=== PATIENT | female | born 1980 | race Caucasian/White ===

== ENCOUNTER 2025-07-08 05:04 | Day surgery (SDC) | payer MEDICAID, SELFPAY ==
[2025-07-08] VITALS (23 sets, daily range): BP systolic 89–124; BP diastolic 50–94; PULSE 77–117; RESP 13–20; TEMP 36.2–37.9; O2SAT 91–100; BMI 33.9
--- OUTSIDE RECORDS SUMMARY | 2025-07-08 05:07 | XMS_ITS | Data Portability ---
Author Organization [facility], [facility] Address [address] [place] [address] Care Team Providers Care Equity Director Name Role Phone [facility] Primary Care Provider Assessment No assessment recorded. Plan of Treatment Reminders Order Date Submit Date Provider Last Modified By Organization Details Last Modified Time Details Appointments None recorded. Lab PTH (parathyr oid hormone), intact + calcium, serum or plasma [email or web address] 30 [facility], [address] [facility], [place], [address], 09:48:46 kidney stone, 24-hour urine panel 021 [email or web address] [employer], [address], [place], [address], 16:17:18 Referral None recorded. Procedures None recorded. Surgeries None recorded. Imaging XR, kidney + ureter + bladder 022 [email or web address] Not available 2 15:10:01 Medication Orders None recorded. Patient TargetsNo targets recorded. Patient InstructionsNo instructions recorded. Reason for Referral None Reported. Results Created Date Observation Date Name Description Value Unit Range Abnormal Flag Note LastModifiedBy Organization Detail LastModifiedTime 12/11/19 21 12/03/2020 imagi ng/di agnos tic resul t No observ ation record ed. [email or web address] Not Available 10/2020 09:48:57 Result Notes None recorded. Procedures Surgical History Date Name Laterality Status Provider Name and Address Organization Details Recorded Time 1 Cystoscopy with foreign body/stent removal completed Des Ye MD [address] [place] [address],[address], [place], [address], [facility] 06/15/2021 14:00:34 Cystoscopy with foreign body/stent removal completed Des Ye MD [address] [place] [address],[address], [place], [address], [facility] 12/30/2020 22:58:34 Breast reduction completed Des Ye MD [address] [place] [address],[address], [place], [address], [facility] 12/29/2020 15:27:08 Carpal tunnel surgery completed Des Ye MD [address] [place] [address],[address], [place], [address], [facility] 12/29/2020 15:27:14 delivery completed Des Ye MD [address] [place] [address],[address] [place] [address], [phone], [facility] 12/29/2020 15:27:22 Imaging Results None recorded. Procedure Notes None recorded. Medical Equipment None Reported. Allergies Allergen ID Allergen Name Allergen Category Reaction Reaction Severity Criticality Documentation Date Start Date Code Code System Note Provider Name and Address Organization Details Recorded Time 234448 quetiapin e medicatio n other Not available Not available 12/29/20202015 00011 RxNorm Des Ye MD [address] [place] [address],[address] [place] [address], [phone], [facility] 1 15:24:50 534136 hydroxyzi ne Not available Not available Not available Not available 12/29/20202015 5553 RxNorm Other react ions and sever ities : 'Thro at Swell ing/C ginain g - Sever e'. Des Ye MD [address] [place] [address],[address] [place] [address], [phone], [facility] 1 15:24:50 155640 lamotrigi ne medicatio n sultana-j ohnson syndrome severe Not available 12/29/20202017 69411 RxNorm Des Ye MD [address] [place] [address], [phone], [facility] 1 15:24:50 045038 loratadin e medicatio n edema severe Not available 12/29/20202011 70918 RxNorm Other react ions and sever ities : 'Thro at Swell ing/C losin g - Sever e'. Des Ye MD [address] [place] [address],[address], [phone], [facility] 1 15:24:50 815303 topiramat e medicatio n other Not available Not available 12/29/20202017 44811 RxNorm Des Ye MD [address] [place] [address], [facility] 1 15:24:50 [id number] quetiapin e fumarate medicatio n edema hives severe severe Not available 12/29/20202011 25219 3 RxNorm Des Ye MD [address] [place], [place] [phone], [facility] 1 15:24:50 Medications Name Sig Start Date Stop Date Status Note LastModified by Organization Details LastModified Time cyclobenzap rine 10 mg tablet TAKE ONE TABLET BY MOUTH THREE TIMES DAILY active Not Available Not Available No t Available phenazopyri dine 200 mg tablet 06/15 completed Not Available Not Available Not Available ondansetron HCl 4 mg tablet TAKE ONE TABLET BY MOUTH EVERY SIX HOURS NEEDED active Not Available Not Available No t Available venlafaxine ER 150 mg capsule,ext ended release 24 hr TAKE TWO CAPSULE BY MOUTH DAILY WITH a MEAL active Not Available Not Available No t Available phentermine 37.5 mg tablet Take 1 tablet by mouth once daily before a meal. active Not Available Not Available No t Available sulfamethox azole 800 mg-trimetho prim 160 mg tablet TAKE ONE TABLET BY MOUTH TWICE DAILY FOR 7 DAYS 06/15 completed Not Available Not Available Not Available acetaminoph en 500 mg tablet TAKE 2 TABLETS BY MOUTH EVERY 6 HOURS. TAKE NO MORE THAN 4000MG (8 TABLETS) PER DAY active Not Available Not Available No t Available ketorolac 10 mg tablet active Not Available Not Available Not Available oxycodone-a cetaminophe n 5 mg-325 mg tablet TAKE ONE OR TWO TABLETS BY MOUTH EVERY FOUR HOURS NEEDED 06/15 completed Not Available Not Available Not Available tamsulosin 0.4 mg capsule TAKE ONE CAPSULE BY MOUTH ONE TIME DAILY active Not Available Not Available No t Available cephalexin 500 mg capsule TAKE ONE CAPSULE BY MOUTH THREE TIMES DAILY 06/15 completed Not Available Not Available Not Available diphenhydra mine 25 mg capsule 06/15 completed Not Available Not Available Not Available buspirone 30 mg tablet TAKE ONE TABLET BY MOUTH TWICE DAILY active Not Available Not Available No t Available gabapentin 300 mg capsule take 1-2 capsules by mouth during the day as needed for anxiety and take 2 capsules by mouth at bedtime. active Not Available Not Available No t Available omeprazole 20 mg capsule,del ayed release Take 1 capsule by mouth once daily 30 minutes before breakfast active Not Available Not Available No t Available ibuprofen 600 mg tablet TAKE ONE TABLET BY MOUTH EVERY SIX HOURS active Not Available Not Available No t Available ondansetron 4 mg disintegrat ing tablet 06/15 completed Not Available Not Available Not Available prazosin 2 mg capsule TAKE THREE CAPSULES BY MOUTH DAILY AT BEDTIME active Not Available Not Available No t Available oxycodone 5 mg tablet TAKE ONE TABLET BY MOUTH EVERY FOUR HOURS NEEDED 06/15 completed Not Available Not Available Not Available bupropion HCl XL 150 mg 24 hr tablet, extended release TAKE ONE TABLET BY MOUTH ONE TIME DAILY active Not Available Not Available No t Available pregabalin 75 mg capsule TAKE ONE CAPSULE BY MOUTH TWICE DAILY 12/29 completed Not Available Not Available Not Available pregabalin 150 mg capsule TAKE ONE CAPSULE BY MOUTH TWICE DAILY active Not Available Not Available No t Available magnesium 400 mg (as magnesium oxide) capsule 2019 active Not Available Not Available [facility] Vitals Date Recorded Body height Body mass index (BMI) Body weight Provider Name and Address Organization Details Last Updated DateTime 12/29/2020 149.86 cm 46.5 kg/m2 753486.25 g Des Ye MD [address] [facility],[address], [address] [place] [address] Urology 12/29/2020 15:24:33 Date Recorded Body height Body mass index (BMI) Body weight Provider Name and Address Organization Details Last Updated DateTime 06/15/2021 149.86 cm 44.4 kg/m2 18579.32 g Des Ye MD [address] [facility],[address], [place], [address] 06/15/2021 11:27:44 Social History Question Answer Notes LastModified by [employer] Details LastModified Time Tobacco Smoking Status Former Smoker Des Ye MD [address] [facility],[address], [place], [address] 12/29/2020 15:26:47 When Did You Quit Smoking? 17+yearssinc elastcigaret te Information not available 12/29/2020 What Was The Date Of Your Most Recent Tobacco Screening? 06/15/2021 Information not available 06/15/2021 Sex: Unknown Functional Status Question Answer Note LastModified by [employer] Details LastModified Time Do you or have you ever used any other forms of tobacco or nicotine? No Information not available 06/15/2021 Do you or have you ever used smokeless tobacco? Never used smokeless tobacco Information not available 12/29/2020 Do you or have you ever used e-cigarettes or vape? Never used electronic cigarettes Information not available 12/29/2020 Mental Status None recorded. Family History Relationship Description Onset Age of this Age Resolved Age Notes LastModified by Organization Details LastModified Time Mother Family history of diabetes mellitus Not available 2020 15:26:30 Mother Heart disease Not available 2020 15:26:38 Father Family history of malignant neoplasm Not available 2020 15:26:42 Medical History Condition Response Kidney Stones Y Depression Y Gynecological HistoryNo gynecological history recorded. Obstetrics History GPAL:G 0 P 0 0 0 0 Past Encounters Encounter ID Performer Location Encounter Start Date Encounter Closed Date Diagnosis/Indication Diagnosis SNOMED-CT Code Diagnosis ICD10 Code Diagnosis IMO Codes Diagnosis Note [id number] Des Ye MD [facility] [address] [place] [id number] 12/29/2020 14:51:10 12/31/2020 09:43:44 Kidney stone 60886073 N20.0 1. Kidney stones - s/p Left ureterosco py with laser lithotrips y (12/16/20) - encourage fluid intake (2.5 L per day) and Citrate intake - recheck 24 Hr urine study - Follow-up in 4-6 weeks to discuss the results [id number] MD [facility] [address] [place] [id number] 06/15/2021 11:10:48 06/17/2021 10:19:43 Kidney stone 05091383 N20.0 1. Kidney stones - s/p Left ureterosco py with laser lithotrips y (06/08/21) - reviewed 24 Hr urine study (01/17/21) - low urine output (1.69 L) - recommend drinking at least 2.5 L per day - high Calcium (229 mg) - check PTH and serum- high Sodium (262 mg) - recommend low Sodium diet (1658-6971 mg per day)- high Uric acid - limit protein intake to 8 ounce per day- Follow-up in- Follow-up in 6 months with [facility]- (repeat CT scan (stone tech) in June 2022 Health Concerns Section Related Observation LastModified by Organization Detai ls LastModified Time None Recorded Concern Status LastModified by Organization Details LastModified Time None Recorded Advance Directives Directive None Recorded Payers Insurance Date Sequence Insurance Name Policy Number Policy Rubio Covered Member ID Rubio Member ID Guarantor Name 06/15/2021 1 [id number] Amarilys Molina [id number] Amarilys Molina Notes Date Note Type Note Provider Name and Address Organization Details Recorded Time 12/29/2020 text/html 40 yo female with H/O fibromyalgia and kidney stones (100% Calcium oxalate monohydrate - saw Dr. Yang in 2010) - reports gross hematuria in OctNovember 2016. She underwent Left ureteroscopy with laser lithotripsy on 09/13/17 - stone (60% Calcium phosphate, 20% Calcium oxalate monohydrate, and 20% Calcium oxalate dihydrate). She underwent Right ureteroscopy with laser lithotripsy on 11/29/17. She underwent Left ureteroscopy with laser lithotripsy (12/16/20) with Dr. Henry. Stone - 80% Calcium phosphate and 20% Calcium oxalate monohydrate. 12/29/20 - She presents for stent removal today. She reports moderate bladder and left kidney irritation from stent. Her hematuria has resolved. ____ CT (11/06/16) - Right - 6 mm stone (upper pole) - 5 mm stone (lower pole) - Left - 4 mm stone (mid-kidney) - 2 (5 mm) stones in proximal ureter CT (08/08/2017) - Right - 1 cm stone (lower pole) - 1.2 cm (renal pelvis) - Left - 5 mm & 6 mm stone (mid-ureter) - no stones in kidney CT scan (12/03/20) - Left - 6 mm, 3 mm, 3 mm stones (mid-ureter) - 4 mm stone (kidney) - Right - punctate stones 24 Hr urine (12/18/17) - low UO (0.92 L) - high Oxalate (55 mg) - low Citrate (385 mg) - low MG (20 mg) - normal - Calcium (30 mg) - Phos (0.698) - Uric acid (0.613) Des Ye MD [address] [place] [address],[address], [place], [address] [place] [facility] 12/30/2020 23:00:44 06/15/2021 text/html 41 yo female with H/O fibromyalgia and kidney stones (100% Calcium oxalate monohydrate - saw Dr. Yang in 2010) - reports gross hematuria in OctNovember 2016. She underwent Left ureteroscopy with laser lithotripsy on 09/13/17 - stone (60% Calcium phosphate, 20% Calcium oxalate monohydrate, and 20% Calcium oxalate dihydrate). - s/p Right ureteroscopy with laser lithotripsy - (11/29/17) - s/p Left ureteroscopy with laser lithotripsy - (12/16/20) with Dr. Henry - Stone - 80% Calcium phosphate and 20% Calcium oxalate monohydrate- s/p Left ureteroscopy with laser lithotripsy - (12/16/20) with Dr. Henry- s/p Left ureteroscopy with laser lithotripsy - (06/08/21) - 50% CaOX monohydrate, 30% CaOX dihydrate, and 10% Calcium phosphate 06/15/21 - She presents for stent removal today. She reports moderate bladder irritation from stent. Her hematuria has resolved. ____ CT (11/06/16) - Right - 6 mm stone (upper pole) - 5 mm stone (lower pole) - Left - 4 mm stone (mid-kidney) - 2 (5 mm) stones in proximal ureter CT (08/08/2017) - Right - 1 cm stone (lower pole) - 1.2 cm (renal pelvis) - Left - 5 mm & 6 mm stone (mid-ureter) - no stones in kidney CT scan (12/03/20) - Left - 6 mm, 3 mm, 3 mm stones (mid-ureter) - 4 mm stone (kidney) - Right - punctate stonesCT scan (05/06/21) - Left - 5 mm stone (distal ureter) - no stones in kidney- Right - 2 mm stone (upper pole) 24 Hr urine (12/18/17) - low UO (0.92 L) - high Oxalate (55 mg) - low Citrate (385 mg) - low MG (20 mg) - normal - Calcium (30 mg) - Phos (0.698) - Uric acid (0.613) 24 Hr urine (01/17/21) - low UO (1.69 L) - high Calcium (229 mg) - high Sodium (262 mg) - high Uric acid (1.109)- normal - Oxalate (35 mg ) - Citrate (486 mg) - Mg (101 mg) - Phos (1.1230) Des Ye MD [address] [facility],[address], [place], [address], [facility] [place] [facility] 06/15/2021 14:02:11 OBGyn Episode No OBEpisode recorded.
[2025-07-08 05:23] LABS: Appearance Urine Clear (Clear)
[2025-07-08 05:33] LABS: Ur HCG Qualitative* Negative (Negative)
--- NOTE | 2025-07-08 05:34 | CRLHL7_ITS ---
For Patients: As a result of the Century Cures Act, medical imaging exams and procedure reports are released immediately into your electronic medical record. You may view this report before your referring provider. If you have questions, please contact your health care provider. INDICATION: Severe epigastric pain, history of GERD. COMPARISON: 05/06/2021 TECHNIQUE: CT of the abdomen and pelvis with intravenous contrast. Multiplanar axial, coronal, and sagittal reformats were reconstructed. Contrast: 82 mL Isovue 370. FINDINGS: Lung bases: Normal. Liver: Normal. No mass. Gallbladder and bile ducts: The gallbladder is distended but there is not any pericholecystic edema or obvious gallbladder wall thickening. No bile duct dilation. Pancreas: Normal. Spleen: Normal. Adrenal glands: Normal. Kidneys: Normal overall renal size and position. There is a 1.2 centimeter right renal cyst. No calculi. Mildly patulous upper collecting systems. The degree of dilatation is better than before. The ureters are not dilated. Urinary bladder: Normal. Pelvis: There is a right ovarian or paraovarian cyst that measures 1.8 centimeters. Vessels: Normal. Bowel: No dilated or inflamed bowel. appendix. Mild stool burden. Lymph nodes: No adenopathy. Peritoneum: No ascites. Abdominal wall: No hernia. Bones: No fractures. No focal worrisome bone lesions. IMPRESSION: 1. Distended gallbladder without CT findings of acute cholecystitis. 2. There is a 1.8 centimeter right ovarian versus paraovarian cyst. Cyst of this size are generally physiologic in a patient this age. Consider follow-up/better characterization with ultrasound after 2-3 cycles. Please note that all CT scans at this facility use dose modulation, iterative reconstruction, and/or weight-based dosing when appropriate to reduce radiation dose to as low as reasonably achievable. Dictated by Nicole Monge MD @ 07/08/2025 6:34:16 AM (Electronically Signed)
[2025-07-08] MEDS: ONDANSETRON 2 MG/ML inj 4 MG IVP ×2 (05:45→08:14)
--- NOTE | 2025-07-08 05:45 | ED.GENADULT ---
HPI - General Adult General Chief complaint: Abdominal Pain Stated complaint: abdominal pain Time Seen by Provider: 07/08/25 05:24 Source: patient Mode of arrival: ambulatory Limitations: no limitations History of Present Illness HPI narrative: 45-year-old female presents the ED with 10/10 epigastric pain that radiates to the back for 2 hours, sharp in nature. No trauma or injury. Has had similar pain in the past, was told it was reflux. Last severe episode was about 7 or 8 months ago she estimates. She has had an EGD before was told that she has GERD and scar tissue. Denies history of H pylori or celiac disease. No history of aortic disease. No alcohol. No history of pancreatitis. Has had 3 prior C-sections but no history of bowel obstructions or other abdominal surgeries. Does have nausea, no vomiting. No recent bloody stools. Bowels have been moving normally. She does take omeprazole daily, tried taking 1 extra dose when symptoms started, no improvement. Did not try Tylenol or ibuprofen. Does use tirzepitide, has been on this for 7 months she estimates, no recent adjustments in her dose. Denies cardiac symptoms, palpitations, dizziness or shortness of breath. Past medical history notable for diabetes, type 2 managed on GLP 1 inhibitor only. She is on losartan for renal protection in the setting of diabetes. She has longstanding GERD, depression. Takes multiple agents for her depression. Denies allergies. No tobacco use. ROS is notable for the GI symptoms as above only, otherwise denies times 12 systems. Related Data Home Medications ?Medication ?Instructions ?Recorded ?Confirmed omeprazole 20 mg capsule,delayed 20 mg PO QDAY 06/01/22 06/01/22 release prazosin 2 mg capsule 6 mg PO QPM 06/01/22 06/01/22 pregabalin 200 mg capsule 200 mg PO BID 06/01/22 06/01/22 venlafaxine 150 mg mg PO 06/01/22 06/01/22 capsule,extended release 24 hr dextromethorphan IR 45 1 tab PO BID 07/08/25 07/08/25 mg-bupropion ER 105 mg biphasic tablet (Auvelity) losartan 25 mg tablet 12.5 mg PO DAILY 07/08/25 07/08/25 tirzepatide 12.5 mg/0.5 mL 12.5 mg subcut 07/08/25 subcutaneous pen injector (Mounjaro) Allergies Allergy/AdvReac Type Severity Reaction Status Date / Time No Known Drug Allergies Allergy Verified 07/08/25 06:01 [facility] Social History Smoking Status: Never smoker Non-prescribed substance use: denies use Exam Const: Vital Signs, click to edit/add: Vital Signs - 24 hr 07/08/25 05:09 07/08/25 06:46 07/08/25 08:21 Temperature 97.9 F Pulse Rate 77 Pulse Rate [Pulse Oximeter] 92 98 Respiratory Rate 16 18 18 Blood Pressure [Ri ght Upper Arm] 123/94 H 124/82 Pulse Oximetry 99 98 100 Oxygen Delivery Me thod Room Air Room Air Documenting provider has reviewed patient's vital signs: yes Common normals: alert Other: Mild distress due to pain, answers questions appropriately. Well nourished well hydrated. HENMT: Common normals: normocephalic, moist oral mucous membranes and oropharynx normal Head and scalp: normocephalic Face and sinus: normal facial exam Mouth: oral and palatal mucosa normal Eye: Common normals: conjunctivae normal General eye: normal appearance of both eyes Conjunctiva: conjunctiva(e) normal Neck & C-Spine: Common normals: full ROM and no lymphadenopathy Resp: Common normals: normal respiratory effort, no use of accessory muscles and clear to auscultation bilaterally Effort & inspection: able to speak in complete sentences Auscultation: clear to auscultation bilaterally Cardio: Common normals: regular rate, regular rhythm, S1 normal heart sound, S2 normal heart sound and no murmurs Rate: regular rate Rhythm: regular rhythm Heart sounds: S1 normal and S2 normal GI: Common normals: Normal to inspection, nondistended, normoactive bowel sounds present, soft to palpation, no hepatosplenomegaly and no masses Palpation: soft and no hepatosplenomegaly Other: Tender to palpation of epigastrium only. No obvious mass. No rebound tenderness or guarding. : Common normals: no CVA tenderness Bladder/kidney exam: no CVA tenderness Back & Pelvis: Common normals: no CVA tenderness and thoracic and lumbar spine normal to inspection Extremity: Common normals: normal to inspection and no pedal edema Neuro: Common normals: moves all extremities Sensorium/orientation: alert Speech: speech normal Motor exam: strength 5/5 throughout Psych: Appearance: grossly normal Attitude: engaged Attention/concentration: attention grossly intact Memory/cognition: memory grossly intact Insight: insight good Judgement: judgment good Skin: Common normals: no rashes or lesions noted General skin exam: no rashes or lesions noted Course Course ED Course: 45-year-old female with epigastric pain, likely secondary to GERD complicated by use of injectable G LP 1 medications which can of course amplify symptoms. Cannot exclude bleeding ulcer, pancreatitis, aortic emergency, bowel obstruction, gallbladder disease, gastric or intestinal rupture, H pylori disease, infection, amongst others. Will place peripheral IV, give Zofran and Toradol for pain, oral GI cocktail. Obtain CT of the abdomen and pelvis to rule out aortic emergency. Typical intra-abdominal labs. Await findings and clinical response. Reevaluation(s) Time of Reevaluation #1: 07:50 Reevaluation #1: Patient on ultrasound findings, worrisome for gallstone pancreatitis with early cholecystitis. Labs are reassuring with the exception of a mildly elevated lipase. Does not appear to be a common bile duct stone more so just in the neck of the gallbladder so probably a good surgical candidate for here. I did speak with Dr. Lozano from a General surgery team. She is tentatively planning for cholecystectomy, timing is still pending. Will keep patient NPO. Patient reports last meal was 7:00 p.m. last night. No blood thinners. Medically optimized for surgery with no additional perioperative recommendations at this time. Dilaudid has been ordered p.r.n., Zofran p.r.n.. Will start LR. Surgeon will need to make decision regarding IV antibiotics if needed and surgical timing. Will hand over care to incoming day shift partner while we await these plans. Update: Accepted by hospitalist. Surgery planned for 3:00 p.m.. Surgeon does not want antibiotics just yet. Maintenance fluids ordered, p.r.n. pain meds ordered. Will transfer to medical floor Vital Signs Vital signs: Initial Vital Signs Temperature 97.9 F 07/08/25 05:09 Temperature Source Temporal Artery Scan 07/08/25 05:09 Pulse Rate 92 07/08/25 05:09 Respiratory Rate 16 07/08/25 05:09 Blood Pressure 123/94 H 07/08/25 05:09 Blood Pressure Mean 103 07/08/25 05:09 Blood Pressure Position Sitting 07/08/25 05:09 Pulse Oximetry 99 07/08/25 05:09 Oxygen Delivery Method Room Air 07/08/25 05:09 Vital Signs Temperature 97.9 F 07/08/25 05:09 Pulse Rate 92 07/08/25 05:09 Respiratory Rate 16 07/08/25 05:09 Blood Pressure 123/94 H 07/08/25 05:09 Pulse Oximetry 99 07/08/25 05:09 Oxygen Delivery Method Room Air 07/08/25 05:09 Temperature 97.9 F 07/08/25 05:09 Pulse Rate 77 07/08/25 08:21 Respiratory Rate 18 07/08/25 08:21 Blood Pressure 124/82 07/08/25 06:46 Pulse Oximetry 100 07/08/25 08:21 Oxygen Delivery Method Room Air 07/08/25 06:46 Medications Administered Medications: Generic Name Dose Route Start Last Admin Trade Name Freq PRN Reason Stop Dose Admin Hydromorphone HCl 0.5 mg 07/08/25 07:58 07/08/25 08:14 Hydromorphone 0.5 Mg/0.5 Ml Inj IVP 0.5 mg Q1H PRN Administration Lactated Ringer's 1,000 mls @ 125 mls/hr 07/08/25 08:00 07/08/25 08:14 Lactated Ringers 1000 Ml IV 125 mls/hr .Q8H ARAM Administration Ondansetron HCl 4 mg 07/08/25 07:58 07/08/25 08:14 Ondansetron 2 Mg/Ml Inj IVP 4 mg Q4H PRN Administration Nausea Discontinued Medications Generic Name Dose Route Start Last Admin Trade Name Freq PRN Reason Stop Dose Admin Hydrocodone Bitart/Acetaminophen 1 tab 07/08/25 06:49 07/08/25 07:08 Hydrocodone-Acetamin 5-325 Mg 1 Tab PO 07/08/25 06:50 1 tab ONCE ONE Administration Ketorolac Tromethamine 15 mg 07/08/25 05:34 07/08/25 05:45 Ketorolac 15 Mg/Ml Inj IVP 07/08/25 05:35 15 mg ONCE ONE Administration Lidocaine/Aluminum/Magnesium/Simeth 30 ml 07/08/25 05:34 07/08/25 05:46 Gi Cocktail (Visc Lido/Antacid) 30 Ml PO 07/08/25 05:35 30 ml ONCE ONE Administration Ondansetron HCl 4 mg 07/08/25 05:34 07/08/25 05:45 Ondansetron 2 Mg/Ml Inj IVP 07/08/25 05:35 4 mg ONCE ONE Administration Medical Decision Making Lab Data Lab results reviewed: Yes I reviewed the patient's lab results Lab results narrative: Labs show mild elevation in lipase which is concerning for pancreatitis, makes me worrisome for gallstone. Remainder of her electrolytes look good though. Renal function looks good. CRP is negative. No white count. Remainder of liver enzymes look good Labs: Lab Results 07/08/25 07/08/25 07/08/25 Range/Units 05:09 05: 05:34 WBC (4.50-11.00) K/uL RBC (4.00-5.20) m/uL Hgb (12.0-16.0) gm/dL Hct (33.0-51.0) % MCV (80-100) fL MCH (26-34) pg MCHC (32-36) gm/dL RDW Coeff of Adam (11.5-15.5) % Plt Count (140-440) K/uL Neut % (Auto) (42.0-72.0) % Lymph % (Auto) (20-44) % Foster % (Auto) (0.0-11.0) % Eos % (Auto) (0.0-7.0) % Baso % (Auto) (0.0-3.0) % Neut # (Auto) (1.7-7.0) K/uL Lymph # (Auto) (0.90-2.90) K/uL Foster # (Auto) (0.00-0.90) K/UL Eos # (Auto) (0.00-0.50) K/uL Baso # (Auto) (0.00-0.30) K/uL Abs Immat Gran (auto) (0.00-0.30) K/uL Imm/Tot Granulo (auto) % Sodium (135-149) mmol/L Potassium (3.6-5.1) mmol/L Chloride (96-114) mmol/L Carbon Dioxide (20-32) mmol/L Anion Gap (7-15) mEq/L BUN (5-24) mg/dL Creatinine (0.5-1.5) mg/dL Estimated Creat Clear Estimated GFR ml/min Glucose (60-115) mg/dL Lactate (0.5-1.9) mmol/L Calcium (8.4-10.6) mg/dL Total Bilirubin (0.1-1.5) mg/dL AST (12-35) U/L ALT (4-35) U/L Alkaline Phosphatase (40-150) U/L C-Reactive Protein (0.5-1.0) mg/dL Total Protein (6.0-8.3) g/dL Albumin (3.3-5.0) g/dL Lipase (23-300) U/L Urine Color Yellow (Yellow) Urine Appearance Clear (Clear) Urine pH 6.5 (5.0-8.5) Ur Specific Selby 1.020 (1.000-1.030) Urine Protein Negative (Negative) Urine Glucose (UA) Negative (Negative) Urine Ketones Trace A (Negative) Urine Blood Negative (Negative) Urine Nitrite Negative (Negative) Urine Bilirubin Negative (Negative) Urine Urobilinogen 2.0 A (0.2-1.0) Ur Leukocyte Esterase Negative (Negative) Urine RBC 0-2 (0-2) Urine WBC 0-2 (0-5) Ur Squamous Epith Cells Few (None-Few) Urine Bacteria Moderate A (None) Urine HCG, Qual Negative (Negative) POC Troponin I 0.00 L (0.01-0.04) ng/ml 07/08/25 Range/Units 05:50 WBC 10.46 (4.50-11.00) K/uL RBC 4.60 (4.00-5.20) m/uL Hgb 14.2 (12.0-16.0) gm/dL Hct 42.8 (33.0-51.0) % MCV 93 (80-100) fL MCH 31 (26-34) pg MCHC 33 (32-36) gm/dL RDW Coeff of Adam 12.7 (11.5-15.5) % Plt Count 284 (140-440) K/uL Neut % (Auto) 64.1 (42.0-72.0) % Lymph % (Auto) 28.7 (20-44) % Foster % (Auto) 5.4 (0.0-11.0) % Eos % (Auto) 1.3 (0.0-7.0) % Baso % (Auto) 0.3 (0.0-3.0) % Neut # (Auto) 6.70 (1.7-7.0) K/uL Lymph # (Auto) 3.00 H (0.90-2.90) K/uL Foster # (Auto) 0.60 (0.00-0.90) K/UL Eos # (Auto) 0.14 (0.00-0.50) K/uL Baso # (Auto) 0.03 (0.00-0.30) K/uL Abs Immat Gran (auto) 0.02 (0.00-0.30) K/uL Imm/Tot Granulo (auto) 0.2 % Sodium 141 (135-149) mmol/L Potassium 4.0 (3.6-5.1) mmol/L Chloride 108 (96-114) mmol/L Carbon Dioxide 21 (20-32) mmol/L Anion Gap 12 (7-15) mEq/L BUN 11 (5-24) mg/dL Creatinine 0.9 (0.5-1.5) mg/dL Estimated Creat Clear 95.96 Estimated GFR 81 ml/min Glucose 116 H (60-115) mg/dL Lactate 1.1 (0.5-1.9) mmol/L Calcium 9.8 (8.4-10.6) mg/dL Total Bilirubin 0.9 (0.1-1.5) mg/dL AST 22 (12-35) U/L ALT 20 (4-35) U/L Alkaline Phosphatase 80 (40-150) U/L C-Reactive Protein < 0.5 L (0.5-1.0) mg/dL Total Protein 7.9 (6.0-8.3) g/dL Albumin 4.6 (3.3-5.0) g/dL Lipase 313 H (23-300) U/L Urine Color (Yellow) Urine Appearance (Clear) Urine pH (5.0-8.5) Ur Specific Selby (1.000-1.030) Urine Protein (Negative) Urine Glucose (UA) (Negative) Urine Ketones (Negative) Urine Blood (Negative) Urine Nitrite (Negative) Urine Bilirubin (Negative) Urine Urobilinogen (0.2-1.0) Ur Leukocyte Esterase (Negative) Urine RBC (0-2) Urine WBC (0-5) Ur Squamous Epith Cells (None-Few) Urine Bacteria (None) Urine HCG, Qual (Negative) POC Troponin I (0.01-0.04) ng/ml Imaging Data Ultrasound right upper quadrant: Attestation: I have reviewed the pertinent imaging results. My impression: Gallstones with pericholecystic fluid Radiologist's impression: FINDINGS: Gallbladder: Numerous gallstones including stones at the gallbladder neck. Borderline gallbladder wall thickness at 3 millimeters. Trace pericholecystic fluid questioned. Positive sonographic Doty`s sign. Common bile duct: 3 mm. Impression: Cholelithiasis with trace pericholecystic fluid questioned and positive sonographic Doty`s sign. This is considered suspicious for acute cholecystitis. Dictated by Paul Mistry MD @ 07/08/2025 7:23:45 AM ECG Data Attestation: I personally reviewed and interpreted this ECG as follows: Prior ECG tracings: not available for review Interpretation: Sinus rhythm with a rate of 87. No significant ST or T-wave abnormalities. Normal intervals and axis. Good R-wave progression. Normal EKG Discharge Plan Discharge Clinical Impression: Cholecystitis with cholelithiasis Patient Disposition: XFER to OR Follow Up/Referrals: Provider,Not a Local [Primary Care Provider, Family Practice]
[2025-07-08] MEDS: GI COCKTAIL (VISC LIDO/ANTACID) 30 ML PO (05:46)
[2025-07-08 05:54] LABS: Lactate* 1.1 mmol/L (0.5-1.9)
[2025-07-08 05:55] LABS: Hematocrit* 42.8 % (33.0-51.0); Hemoglobin* 14.2 gm/dL (12.0-16.0); Immature Granulocytes Abs Auto 0.02 K/uL (0.00-0.30); Immature Granulocytes Pct Auto 0.2 %; Lymphocytes Absolute Auto 3.00 K/uL (0.90-2.90); Mean Corpuscular HGB Conc 33 gm/dL (32-36); Mean Corpuscular Hemoglobin 31 pg (26-34); Mean Corpuscular Volume 93 fL (80-100); RDW Coefficient of Variation % 12.7 % (11.5-15.5); Red Blood Count* 4.60 m/uL (4.00-5.20); White Blood Count* 10.46 K/uL (4.50-11.00)
[2025-07-08 05:57] LABS: Slide Review Reflex No
[2025-07-08 06:03] LABS: Troponin, Point-of-Care* 0.00 ng/ml (0.01-0.04)
--- OUTSIDE RECORDS SUMMARY | 2025-07-08 06:03 | XMS_ITS | Clinical Summary ---
Author Organization [facility] Address [address] [place] [id number] Care Team Providers Care Tailor Helper Name Role Phone Jenni Stein MD Unavailable Gen Huang MD Unavailable + [phone] Hillary Holley RN Unavailable [phone] Unavailable [phone] Pricila Farfan PhD, LP Unavailable [phone] Nina Sevilla MD Primary Care Provider Allergies Active Allergy Reactions Criticality Noted Date Comments Loratadine Edema,Throat Swelling/Closing High 03/19/2012 Swelling of face and hands OK with benadryl Other reaction(s): Edema, Throat Swelling/Closing Swelling of face and hands Hydroxyzine Throat Swelling/Closing,Krupa phylaxis,Other - Describe In Comment Field High 12/21/2015 OK with benadryl Lamotrigine Andrew-Juan Syndrome,Other - Describe In Comment Field High 07/01/2018 Unlisted Allergen (Include Detail In Comments) *Unknown 06/07/2021 No blood products, pt is Taoist Quetiapine Other - Describe In Comment Field,Hallucinations ,Hives High 06/14/2009 Patient says I swell up. Swelling in face in hands Patient says I swell up. Quetiapine Fumarate Edema,Hives High 01/17/2012 Swelling in face in hands Topiramate Other - Describe In Comment Field 10/15/2017 kidney stones Medications CPAPIndications :Obstructive sleep apnea CPAP machine for home use at pressure: 5-16 CM H20 , Heated humidifier x 1, Humidifier chamber x 1, Full face mask with cushion x 1, Heated tubing x 1, Headgear x 1, Filters: Disposable x 1pk & Reusable x 1pk, Length of Need: 99 months, Frequency of use: Daily 1 Device 11 10/19/19 18 Active tirzepatide (MOUNJARO) 12.5 mg/0.5 mL penIndications: Type 2 diabetes mellitus with diabetic microalbuminuri a, unspecified whether intermodal customer service insulin use (HC) Inject 12.5 mg subcutaneous once weekly. 6 mL 3 06/01/20 25 Active atorvastatin (LIPITOR) 40 mg tabletIndicatio ns:Type 2 diabetes mellitus with diabetic microalbuminuri a, unspecified whether intermodal customer service insulin use (HC) Take 1 Tablet (40 mg) by mouth at bedtime. 90 Tablet 3 06/01/20 25 Active losartan (COZAAR) 25 mg tabletIndicatio ns:Type 2 diabetes mellitus with diabetic microalbuminuri a, unspecified whether snf insulin use (HC) Take 0.5 Tablets (12.5 mg) by mouth once daily. 90 Tablet 3 06/01/20 25 Active omeprazole (PRILOSEC) 20 mg Delayed-Release capsuleIndicati ons:Gastroesoph ageal reflux disease with esophagitis without hemorrhage Take 1 Capsule (20 mg) by mouth once daily before a meal. 30 Capsule 5 06/01/20 25 Active venlafaxine (EFFEXOR XR) 150 mg Extended-Releas e capsuleIndicati ons:PTSD (post-traumatic stress disorder),Gener alized anxiety disorder Take 1 Capsule (150 mg) by mouth once daily with a meal. 180 Capsule 1 06/01/20 25 Active alpha lipoic acid 600 mg capsuleIndicati ons:Neuropathy Take 600 mg by mouth once daily. 10/07/19 25 Active OneTouch Verio test strips stripIndication s:Type 2 diabetes mellitus with diabetic microalbuminuri a, unspecified whether intermodal customer service insulin use (HC) As directed. 11/14/19 25 Active blood-glucose meterIndication s:Type 2 diabetes mellitus with diabetic microalbuminuri a, unspecified whether intermodal customer service insulin use (HC) monitor blood glucose 2 hours after meals and whenever symptomatic 10/25/19 24 Active blood-glucose meterIndication s:Type 2 diabetes mellitus with diabetic microalbuminuri a, unspecified whether snf insulin use (HC) once daily. 10/25/19 24 Active lancetsIndicati ons:Type 2 diabetes mellitus with diabetic microalbuminuri a, unspecified whether snf insulin use (HC) As directed. 10/29/19 24 Active Auvelity 45-105 mg tabletIndicatio ns:PTSD (post-traumatic stress disorder),Sever e episode of recurrent major depressive disorder, without psychotic features (HC),Generalize d anxiety disorder Take 1 Tablet by mouth two times daily. 180 Tablet 3 06/17/20 25 Active Auvelity 45-105 mg tabletIndicatio ns:PTSD (post-traumatic stress disorder),Sever e episode of recurrent major depressive disorder, without psychotic features (HC),Generalize d anxiety disorder Take 1 Tablet by mouth two times daily. 025 Discontin ued(Reord er (E-cancel not sent)) Active Problems Patient Care Coordination No te Formatting of this note is d ifferent from the original. Nutrition Order 02/04/2021 Weight Management - Adult Surgical Program Initial Consult / Established Care 02/04/2021 with MD Hillary Alvares RN Intake: Wt Readings from Last 1 Encounters: 02/09/21 106.1 kg (234 lb) lbs, Ht Readings from Last 1 Encounters: 02/09/21 1.499 m (4' 11.02) , Body mass index is 47.24 kg/m . Planned Operation Sleeve Gastrectomy +Cholecystectomy Payor: [employer] [place] / Plan: [employer] [place] / Product Type: *No Product type* / Insurance requirements:Pre-surgery medical clearance-see letter 02/16/21 from RADHA Cast[employer]eda [employer] Pgm Completion: ~ April, Procedure Location: [facility] Co-morbidities: VALERIE Orders: Labs Yes Imaging / Procedures Abdominal Ultrasound DONE 02/15/21 NAFLD + stones/sludge Pre-Surgery Program Consults: - Registered Dietitian 2 - Cleared 04/14/2021- Ricardo - Psychological Evaluation: Dr. Pricila Farfan Referrals: Yes - control -Tobacco Cessation: reports that she quit smoking about 19 years ago. Her smoking use included cigarettes. She has a 1.00 pack-year smoking history. She has never used smokeless tobacco. Future Appointments Date Time Provider Department Center 03/04/2021 8:15 AM Jenni Stein MD [facility]D 03/16/2021 2:00 PM Juanita Abrams, RD ANBWBA ANBW 04/18/2021 11:00 AM Pricila Farfan, PhD, [facility] IP OP Problem Noted Date Diagnosed Date Mixed hyperlipidemia 06/01/2025 Bereavement 06/01/[address] 06/01/2025 Overview (06/01/2025): 01/2023 Neuropathy 10/07/2024 Type 2 diabetes mellitus 10/22/2023 Overview (06/01/2025): AI Summary: The patient's family history included diabetes in her mother, father and brother. The patient was interested in getting healthy and stated she did not want diabetes. On 12/25/2024, the patient noted significant improvements in her physical health, reporting weight loss and better control of her diabetes, which was currently well-controlled. 10/07/24: A1c 7.9 % 03/10/25: Cr 1.02 mg/dL On meds: dapagliflozin (external), semaglutide (external) H/O renal calculi 10/22/2023 NAFLD (nonalcoholic fatty liver disease) 021 Overview (02/18/2021): Per RUQ February 2021 Chronic insomnia 04/25/2019 PTSD (post-traumatic stress disorder) 01/23/2018 VALERIE, 10/12/2017 AHI 9.4 10/19/2017 Amphetamine use disorder, mild, in early remissi on 08/24/2016 Borderline intellectual disability 08/10/2016 Renal cyst 02/19/2016 Fibromyalgia 12/21/2015 Bilateral carpal tunnel syndrome s/p release 08/2016 Morbid obesity with BMI of 45.0-49.9, adult 07/12 Gastroesophageal reflux dise ase with esophagitis without hemorrhage 07/31/2013 Overview (06/01/2025): >>OVERVIEW FOR HEARTBURN WRITTEN ON 07/21/2020 5:06 PM BY CHAD MOHAN MD EGD 05/2017 mild reflux EGD 07/2020 mild reflux esophagitis no Rahman's esophagus Severe episode of recurrent major depressive disorder, without psychotic features 03/09/2010 Generalized anxiety disorder 03/09/2010 Overview (06/01/2025): Diagnosis updated by automated process. Provider to review and confirm. Cyst of ovary 03/26/2009 Overview (06/01/2025): Gets large cyst on ovaries Abnormal glandular Papanicolaou smear of cervix 03/29/2007 Overview (06/01/2025): 2005 NIL 2014 NIL 2018 NIL negative HPV 2022 NIL negative HPV Next due 2027 LGSIL - unable to find associated pathology report for dating Resolved Problems Problem Noted Date Diagnosed Date Resolved Date Calculus of ureter 06/01/2025 5 Hydronephrosis with urinary obstruction due to ureteral calculus 06/01/2025 06/01/2025 Pyelonephritis 06/01/2025 06/01/2025 Acute gout of foot 10/28/2024 5 Functional diarrhea 02/09/2017 06/01/20 25 Overview (02/09/2017): Colonoscopy 02/2017 normal repeat at age 51 Sunburn 03/20/2012 04/07/2015 Anxiety state, unspecified 03/29/2007 0 10/06/2021 Encounters Date Type Department Care Team Description 06/26/2025 9:30 AM CDT Telemedicine [facility] [address] [place] [phone] Joan Moore MD Mental Health Intake 06/23/2025 Telephone [facility] [address] [place] [address] Nina Sevilla MD Prior Authorization (Auvelity 45-105 mg tablet APPROVED 06/23/25-06/23/26) 06/21/2025 Travel 06/17/2025 Telephone [facility] [address] [facility] [place] [address] Nina Sevilla MD Prior Authorization (tirzepatide (MOUNJARO) 12.5 mg/0.5 mL pen APPROVED 06/17/25-06/17/26) 06/01/2025 4:25 PM CDT Office Visit [facility] [address] [facility] [place] [address] Nina Sevilla MD Establish Care; Physical (45 y.o ) 06/01/2025 Travel from Last 3 Months Immunizations Immunization Administration Dates Next Due AMB Influenza, IIV4 PF (=>6 mos Flulaval,Fluzone Fluarix)(Flu Clinic Only) 06/07/2020,07/23/2019 COVID-19 vaccine (Moderna 100mcg/0.5mL) PF, MDV 02/03/2021,01/06/2021 Influenza Virus, Unspecified 07/17/2010 Influenza, IIV3 (Age >=3 years) 09/24/2023,10/25 Influenza, IIV4 06/19/2023,,07/04/2018,2016,06/14/2016 Tdap 05/19/2021,02/01/2012,03/31/2011 Family History Medical History Relation Name Comments Diabetes Brother 1 Heart Disease Brother 1 Hyperlipidemia Brother 1 Hypertension Brother 1 Obesity Brother 1 Diabetes Father Esophageal cancer Father Cancer Maternal Grandfather Cancer Maternal Grandmother Diabetes Mother Heart Disease Mother Hyperlipidemia Mother Hypertension Mother Obesity Mother Osteoporosis Mother Thyroid Disease Mother Cancer Paternal Grandfather Lung Depression Sister Mental illness Son Anesthesia Problem No Family History Blood Disease No Family History Relation Name Status Comments Brother 1 Alive Brother 2 Alive Brother 3 Alive Brother 4 Alive Brother 5 Alive Brother 6 Alive Father Alive Maternal Grandfather Maternal Grandmother Mother Alive Paternal Grandfather Paternal Grandmother Sister Alive Son Alive Social History Tobacco Use Types Packs/Day Years Used Date Smoking Tobacco: Former Cigarettes 1 1 0 09/10/2000 - 09/10/2001 Smokeless Tobacco: Never Tobacco Cessation:Counseling Given: Not Answered Alcohol Use Standard Drinks/Week Comments Not Currently 0 (1 standard drink = 0.6 oz pur e alcohol) PHQ-2 Answer Date Recorded PHQ-2 TOTAL SCORE 4 06/26/2025 Social Connections Answer Date Recorded Frequency of Communication with Friends and Fami ly Not on file 01/08/2023 Alcohol Use Answer Date Recorded How often do you have a drink containing alcohol ? 0 11/11/2021 Average Number of Drinks Not on file 022 Frequency of Binge Drinking Not on file 12/2021 Financial Resource Strain Answer Date R ecorded Difficulty of Paying Living Expenses 3 12/28/2021 Difficulty of Paying Living Expenses Not on file 12/28/2021 Food Insecurity Answer Date Recorded Worried About Running Out of Food in the Last Ye ar 1 12/28/2021 Transportation Needs Answer Date Record ed Lack of Transportation (Medical) 1 12/28/2021 Housing Stability Answer Date Recorded Unable to Pay for Housing in the Last Year 1 12/28/2021 Comments No Sex and Gender Information Value Date Recorded Sex Assigned at Not on file Legal Sex Female 6:18 AM QUANTITATIVE RESEARCHER Gender Identity Not on file Sexual Orientation Not on file Occupation Industry Job Start Date Job End Date unemployeed Not on file Not on file Not on file student Not on file Not on file Not on file Obstetrics History Para Term AB IAB SAB Ectopic Multiple Livin g Live Births 3 2 2 1 1 2 Date Outcome GA Total Labor Labor/2nd/3rd Weight Sex Type Anes PTL Luisa A1 A5 Name Clin IAB Term Term Last Filed Vital Signs Vital Sign Reading Time Taken Comments Blood Pressure 106/75 06/01/2025 4:17 PM CDT Pulse 93 06/01/2025 4:17 PM CDT Temperature 36.8 C (98.2 F) 12/28/2021 6:57 PM CDT Respiratory Rate 16 12/28/2021 6:57 PM CDT Oxygen Saturation 93% 06/01/2025 4:17 PM CDT Inhaled Oxygen Concentration - - Weight 77.1 kg (170 lb) 06/01/2025 4:17 PM CDT Height 149.9 cm (4' 11) 06/07/2021 12:25 PM CDT Body Mass Index 34.34 06/07/2021 12:25 PM CDT Plan of Treatment Upcoming Encounters Date Type Department Care Team (Late st Contact Info) Description 09/01/2025 3:50 PM QUANTITATIVE RESEARCHER Office Visit [facility] [address] [place] [address] Nina Sevilla MD [address] [place] [address] Health Maintenance Due Date Last Done Comments Hepatitis B series for 19+ ( 1 of 3 - 19+ 3-dose series) 2000 Pneumococcal series for age 6-49 (1 of 2 - PCV) 2000 HPV series for age 9-45 (1 - 3-dose SCDM series) 2008 BMI (ht and wt on same day) for age 18+ 06/03/2022 06/03/2021, 03/16/2021, 02/09/2021, Additional history exists Influenza Vaccine (#1) 2025 4, 06/19/2023, 06/03/2021, Additional history exists Depression screening for age 12+ 06/26/2026 06/26/2025, 06/01/2025, 07/04/2022, Additional history exists Pap test for age 21-65 01/25/2028 3 (Verified in Care Everywhere or Patient Record), 12/03/2018, 12/03/2018, Additional history exists Tetanus booster 05/19/2031 05/19/2021, 01/09, 03/31/2011 RSV vaccine for adults or (1 - 1-dose 75+ series) 2056 HIV for age 15-65 Completed 02/11/2016 Hepatitis C screening for ag e 18-79 Completed 10/15/2020 Medical Devices Implanted Type Area Track Announcer Device Identifier Shelf Expiration Date Model / Serial / Lot Stent Contour [id number] - [id number] Implanted:Qty: 1 on 08/16/2011 at [facility] Right: Ureter [facility] [id number] / / [id number] Description:NO STICKER WK Stent Uret [id number] Silhouette - [id number] Implanted:Qty: 1 on 09/13/2017 by Des Ye MD at [facility] Left: Ureter [employer] 11/27/2019 [id number] / / [id number] Stent Uret [id number] Silhouette - [id number] Implanted:Qty: 1 on 11/29/2017 by Des Ye MD at [facility] Right: Ureter [employer] 05/14/2020 [id number] / / [id number] Stent Uret [id number] Contour - [id number] Implanted:Qty: 1 on 12/16/2020 by Parker Henry MD at [facility] Left: Ureter [facility] 07/20/2023 [id number] / / [id number] Stent Uret [id number] Contour - [id number] Implanted:Qty: 1 on 06/07/2021 by Des Ye MD at [facility] Left: Ureter [facility] 02/10/2024 [id number] / / [id number] Procedures Procedure Name Priority Date/Time Associated Diagnosis Comments COMP METABOLIC PANEL Routine 06/01/2025 5:15 PM CDT Type 2 diabetes mellitus with diabetic microalbuminuria, unspecified whether snf insulin use (HC) NAFLD (nonalcoholic fatty liver disease) HEMOGLOBIN A1C Routine 06/01/2025 5:15 PM CDT Type 2 diabetes mellitus with diabetic microalbuminuria, unspecified whether snf insulin use (HC) LIPID PANEL W REFLEX MEASURED LDL Routine 06/01/2025 5:15 PM CDT Mixed hyperlipidemia ANTI HCV Routine 10/15/2020 10:59 AM QUANTITATIVE RESEARCHER Rheumatoid factor positive Arthralgia, unspecified joint RECTIFYING ATTENDANT THIN PREP PAP SCREEN IMAGED Routine 12/03/2018 2:30 PM CDT Screening for malignant neoplasm of cervix ANTI HIV 1/2 Routine 02/11/2016 10:06 AM CDT Elevated rheumatoid factor from Last 3 Months or Most Recently Relevant to Health Maintenance Results * HEMOGLOBIN A1C (06/01/2025 5:15 PM CDT) HEMOGLOBIN A1C 5.4 <5.7 % 06/02/2025 4:02 AM CDT [facility] Comment: For the purpose of screening for the presence of diabetes: <5.7% Consistent with the absence of diabetes 5.7-6.4% Consistent with increased risk for diabetes (prediabetes) > or =6.5% Consistent with diabetes This assay result is consistent with a decreased risk of diabetes. Currently, no consensus exists regarding use of hemoglobin A1c for diagnosis of diabetes in children. According to [place] Diabetes Association (ADA) guidelines, hemoglobin A1c <7.0% represents optimal control in non- diabetic patients. Different metrics may apply to specific patient populations. Standards of Medical Care in Diabetes(ADA). Blood BLOOD SPECIMEN / Unknown [facility] / Unknown 06/01/2025 5:15 PM CDT 06/01/2025 5:15 PM CDT Nina Sevilla MD CHEMISTRY Final R esult [facility] [address] [id number], * (ABNORMAL) LIPID PANEL W REFLEX MEASURED LDL (06/01/2025 5:15 PM CDT) CHOLESTEROL, TOTAL 225(H) <200 mg/dL 06/02/2025 8:27 AM CDT [facility] TRIGLYCERIDES 167(H) <150 mg/dL 06/02/2025 8:27 AM CDT [facility] HDL CHOLESTEROL 40(L) > OR = 50 mg/dL 06/02/2025 8:27 AM CDT [facility] NON HDL CHOLESTEROL 185(H) <130 mg/dL (calc) 06/02/2025 8:27 AM CDT [facility] Comment: For patients with diabetes plus 1 major ASCVD risk factor, treating to a non-HDL-C goal of <100 mg/dL (LDL-C of <70 mg/dL) is considered a therapeutic option. CHOL/HDLC RATIO 5.6(H) <5.0 (calc) 06/02/2025 8:27 AM CDT [facility] LDL-CHOLESTEROL 155(H) mg/dL (calc) 06/02/2025 8:27 AM CDT [facility] Comment: Reference range: <100 Desirable range <100 mg/dL for primary prevention; <70 mg/dL for patients with CHD or diabetic patients with > or = 2 CHD risk factors. LDL-C is now calculated using the Arlyn calculation, which is a validated novel method providing better accuracy than the Friedewald equation in the estimation of LDL-C. Chad SS et al. MARYLU. 2013;310(19): 3031-9713 (http://education.[employer]/faq/SSW677) Blood BLOOD SPECIMEN / Unknown [facility] / Unknown 06/01/2025 5:15 PM CDT 06/01/2025 5:15 PM CDT Nina Sevilla MD CHEMISTRY Final R esult [facility] [address] [place] [phone], * (ABNORMAL) COMP METABOLIC PANEL (06/01/2025 5:15 PM CDT) SODIUM 140 135 - 146 mmol/L 06/02/2025 8:27 AM CDT [facility] POTASSIUM 4.2 3.5 - 5.3 mmol/L 06/02/2025 8:27 AM CDT [facility] CHLORIDE 107 98 - 110 mmol/L 06/02/2025 8:27 AM CDT [facility] CARBON DIOXIDE 22 20 - 32 mmol/L 06/02/2025 8:27 AM CDT [facility] GLUCOSE 75 65 - 99 mg/dL 06/02/2025 8:27 AM CDT [facility] Comment: Fasting reference interval CALCIUM 9.7 8.6 - 10.2 mg/dL 06/02/2025 8:27 AM CDT [facility] CREATININE 1.18(H) 0.50 - 0.99 mg/dL 06/02/2025 8:27 AM CDT [facility] BUN/CREATININE RATIO 11 6 - 22 (calc) 06/02/2025 8:27 AM CDT [facility] EGFR 58(L) > OR = 60 mL/min/1. 73m2 06/02/2025 8:27 AM CDT [facility] ALBUMIN 4.6 3.6 - 5.1 g/dL 06/02/2025 8:27 AM CDT [facility] PROTEIN, TOTAL 7.5 6.1 - 8.1 g/dL 06/02/2025 8:27 AM CDT [facility] BILIRUBIN, TOTAL 0.9 0.2 - 1.2 mg/dL 06/02/2025 8:27 AM CDT [facility] ALKALINE PHOSPHATASE 85 31 - 125 U/L 06/02/2025 8:27 AM CDT [facility] ALT 13 6 - 29 U/L 06/02/2025 8:27 AM CDT [facility] AST 12 10 - 30 U/L 06/02/2025 8:27 AM CDT [facility] UREA NITROGEN (BUN) 13 7 - 25 mg/dL 06/02/2025 8:27 AM CDT [facility] GLOBULIN 2.9 1.9 - 3.7 g/dL (calc) 06/02/2025 8:27 AM CDT [facility] ALBUMIN/GLOBULIN RATIO 1.6 1.0 - 2.5 (calc) 06/02/2025 8:27 AM CDT [facility] Blood BLOOD SPECIMEN / Unknown [facility] / Unknown 06/01/2025 5:15 PM CDT 06/01/2025 5:15 PM CDT Nina Sevilla MD CHEMISTRY Final R esult [facility] [address] [place] [address], * ANTI HCV (10/15/2020 10:59 AM QUANTITATIVE RESEARCHER) HEPATITIS C ANTIBODY Non-React kristy Non-React kristy 10/15/2020 8:05 PM QUANTITATIVE RESEARCHER [facility] Comment:Antibodies to HCV no t detected; does not exclude the possibility of exposure to HCV. Blood BLOOD SPECIMEN / Unknown [facility] / Unknown 10/15/2020 10:59 AM QUANTITATIVE RESEARCHER 10/15/2020 10:59 AM QUANTITATIVE RESEARCHER Bryanna Higgins MD SEND OUTS Final Result [facility] [address] [place] [address], [place] * RECTIFYING ATTENDANT THIN PREP PAP SCREEN IMAGED (12/03/2018 2:30 PM CDT) Case Report Gynecologic Cytology Report Case: [id number] Authorizing Provider: Pam Mendez PA Collected: 12/03/2018 1430 Ordering Location: [facility] Received: 12/03/2018 1501 Clinic First Screen: Eder Coronel Specimen: RECTIFYING ATTENDANT ThinPrep Vial Screening, Cervical 12/11/2018 11:24 AM CDT [facility] INTERPRETATION/ RESULT NEGATIVE FOR INTRAEPITHELIAL LESION OR MALIGNANCY (NIL) (none) 12/11/2018 11:24 AM CDT [facility] [employer] ENTRMT LABORATORY at 1124 CDT SPECIMEN ADEQUACY Satisfactory for evaluation Endocervical component present 12/11/2018 11:24 AM CDT [facility]AL [facility]OR[facility] HPV REQUEST HPV and PAP 12/11/2018 11:24 AM CDT [facility] Date of LMP 11/21/18 12/11/2018 11:24 AM CDT [facility] [employer] [facility] EN[facility]AL [facility] Last Pap Date 05/11/15 12/11/2018 11:24 AM CDT [facility] [employer] [facility] EN[facility]AL [facility] Last Pap Result NIL 9 11:24 AM CDT [facility] [employer] [facility] EN[facility] Abnormal Pap or [place] Bx in last 5 years No 12/11/2018 11:24 AM CDT [facility] Menstrual Status Regular Periods 12/11/2018 11:24 AM CDT [facility] [place] Bx Done Today No 12/11/2018 11:24 AM CDT [facility] [employer] [facility] EN[facility]AL [facility] Additional Information None given 12/11/2018 11:24 AM CDT [facility] EN[facility]AL [facility] Automated Review Successful 12/11/2018 11:24 AM CDT [facility] Comment:Specimen processed s uccessfully by automated assurance services manager health care device, ThinPrep Imaging System, [employer] ANCILLARY TESTING RECTIFYING ATTENDANT HPV Ordered, Please see separate report 12/11/2018 11:24 AM CDT [facility] Note The pap test is a screening technique, not a diagnostic procedure. It is used primarily to screen for squamous cancers and precursor lesions. Published studies have shown that it is subject to both false negative and false positive results. The pap test should not be used as the sole means to diagnose or exclude pre-malignant and malignant lesions. Cytology is screened and interpreted at [facility] - [address], [place] [address] and [facility] - [address]; [place] [address] and [facility] - [address]; [place] [address] and [facility] [address]; [place] [address] 12/11/2018 11:24 AM CDT [facility] Other (Cervical) Non-Blood / Unknown 12/03/2018 2:30 PM CDT 12/03/2018 3:01 PM CDT us Pam GARCIA PATHOLOGY/CYTOLOGY Final R esult [facility] [address] [place] [address], [place] * ANTI HIV 1/2 (02/11/2016 10:06 AM CDT) HIV-1/HIV-2 ANTIBODY Non-Reacti ve Non-Reacti ve 02/11/2016 4:32 PM CDT [facility] Blood specimen (specimen) BLOOD SPECIMEN / Unknown Venipuncture / Unknown 02/11/2016 10:06 AM CDT 02/11/2016 10:07 AM CDT Narrative [facility] - 02/11/2016 4:32 PM CDT HIV-1 p24 and HIV-1/HIV-2 Ab not detected us Sung Vilchis MD SEND OUTS Final Resul t [facility] [address] [place] [address], [place] from Last 3 Months or Most Recently Relevant to Health Maintenance Insurance MEDICAID MEDICA CHOICE MEDICAID [facility] [employer] Member Subscriber Plan / Payer (Ef fective 2016-Present) Name:Amarilys Molina Relation to Subscriber:Self Name:Amarilys Molina Payer ID:Not on file Group ID:Not on file Type:Not on file [phone] Address: [address] [place] [address] [employer] Member Subscriber Plan / Payer (Ef fective 2016-Present) Name:Amarilys Molina Relation to Subscriber:Self Name:Amarilys Molina Payer ID:Not on file Group ID:Not on file Type:Not on file [phone] Address: [address] [place] [address] Advance Directives * Full Code (Latest Code Status on File) Date Activated Date Inactivated Comments 06/07/2021 12:35 PM 06/07/2021 9:16 PM Question Answer Comments Code Status Discussion: Not Discussed * Full Code Date Activated Date Inactivated Comments 12/16/2020 10:31 AM 12/16/2020 4:53 PM Question Answer Comments Code Status Discussion: Not Discussed * Full Code Date Activated Date Inactivated Comments 11/29/2017 11:25 AM 11/30/2017 2:51 PM * Full Code Date Activated Date Inactivated Comments 09/13/2017 11:00 AM 09/13/2017 7:14 PM Question Answer Comments Code Status Discussion: Not Discussed * Full Code Date Activated Date Inactivated Comments 03/19/2012 12:38 PM 03/22/2012 3:56 PM Care Teams Tailor Helper Relationship Specialty Start Date End Date Nina Sevilla MD [address] [place] [address] PCP - General Family Practice 06/01/25 Jenni Stein MD [address] [place] [address] Psychiatry Psychiatry 01/17/18 Gen Huang MD [address] [phone] Consulting Physician Surgery - General 02/04/21 Hillary Holley RN [address] [place] [address] [phone] Registered Nurse 02/09/[address] [place] [address] [phone] Registered Dietitian Supervising Floorperson 02/09/21 Pricila Farfan, PhD, LP [address] [place] [address] [phone] Psychology 04/18/21
--- OUTSIDE RECORDS SUMMARY | 2025-07-08 06:03 | XMS_ITS | Clinical Summary ---
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 F33.2 (ICD-10-CM ) 03/04 Active 03/10 Desmond Doan MD Major depressive disorder, recurrent severe without psychotic features Imported from [facility]: [employer] ( 2 at 06:31:35 AM) PTSD (post-traum atic stress disorder) F43.10 (ICD-10-CM ) 10/21 Active 03/10 Desmond Doan MD Post-traumatic stress disorder, unspecified Imported from [facility]: [employer] ( 2 at 06:31:35 AM) Obstructive sleep apnea 50386964 (SNOMED CT) 10/19 Active 03/10 Desmond Doan MD Obstructive sleep apnea syndrome Imported from [facility]: [employer] ( 2 at 06:31:35 AM) Morbid obesity with BMI of 45.0-49.9, adult E66.01 (ICD-10-CM ) 02/04 Active 03/10 Desmond Doan MD Morbid (severe) obesity due to excess calories Imported from [facility]: [employer] ( 2 at 06:31:35 AM) Fibromyalgi a 89976586 (SNOMED CT) 12/20 Active 03/10 Desmond Doan MD Fibromyositis Imported from [facility]: [facility] ( 2 at 06:31:35 AM) Chronic insomnia 365627639 (SNOMED CT) 04/25 Active 03/10 Desmond Doan MD Insomnia Imported from [facility]: [facility] ( 2 at 06:31:35 AM) Borderline intellectua l disability R41.83 (ICD-10-CM ) 10/11 Active 03/10 Desmond Doan MD Borderline intellectual functioning Imported from [facility]: [facility] ( 2 at 06:31:35 AM) Bilateral kidney stones N20.0 (ICD-10-CM ) 03/14 Active 03/10 Desmond Doan MD Calculus of kidney Imported from [facility]: [facility] ( 2 at 06:31:35 AM) Carpal tunnel syndrome, bilateral G56.03 (ICD-10-CM ) 03/03 Active 03/03 Desmond Doan MD Carpal tunnel syndrome, bilateral upper limbs Non-epilept ic events R56.9 (ICD-10-CM ) 03/20 Active 03/20 Desmond Doan MD Unspecified convulsions Paresthesia 90756208 (SNOMED CT) 10/26 Resolved 10/26 Desmond Doan MD Paresthesia Paresthesia 77594008 (SNOMED CT) 10/26 Removed 10/26 John Davila MD Paresthesia Numbness/ti ngling 782.0 (ICD-9-CM) 03/03 Resolved 03/03 Florin Paris MD Disturbance of skin sensation Convulsions 86799053 (SNOMED CT) 03/20 Inactive 03/20 Florin Paris MD Seizure Numbness/ti ngling 782.0 (ICD-9-CM) 03/03 Removed 03/03 John Davila MD Disturbance of skin sensation Carpal tunnel syndrome 32578403 (SNOMED CT) 03/03 Inactive 03/03 John Davila MD Carpal tunnel syndrome Medications Medication Instructions Start Date Stop Date Generic Name NDC Provider LEVETIRACETAM 500 MG TABS Take 1 tablet by mouth twice a day levetiracetam [id number] Desmond Doan MD PRISTIQ 100 MG [id number] Take 1 tablet by mouth once a day desvenlafaxine succinate 50139115248 Desmond Doan MD LYRICA 50 MG CAPS Take 1 capsule by mouth twice a day pregabalin 27772349384 Desmond Doan MD TOPIRAMATE 25 MG TABS Take 1 tablet by mouth twice a day topiramate 19646492521 Desmond Doan MD LORAZEPAM 1 MG TABS Take 1 tablet by mouth every six hours as needed lorazepam 05359095164 Desmond Doan MD GABAPENTIN 300 MG CAPS Take 1 capsule by mouth twice a day gabapentin 10046556889 Desmond Doan MD BUSPIRONE HCL 30 MG TABS Take 1 tablet by mouth twice a day buspirone 71372255697 Desmond Doan MD DIAZEPAM 5 MG/5ML SOLN Take 2 ml by mouth every eight hours as needed diazepam 60673865500 Desmond Doan MD BUPROPION HCL ER (XL) 300 MG [id number] Take 1 Tablet (300 mg) by mouth once daily bupropion hcl 37148152319 Desmond Doan MD PREGABALIN 200 MG CAPS Take 1 Capsule (200 mg) by mouth 2 times daily pregabalin 51301760600 Desmond Doan MD VENLAFAXINE HCL ER 150 MG [id number] Take 2 Capsules (300 mg) by mouth once daily with a meal venlafaxine 54532292234 Desmond Doan MD GABAPENTIN 300 MG CAPS Take 3 Capsules (900 mg) by mouth at bedtime gabapentin 40724130568 Desmond Doan MD PRAZOSIN HCL 2 MG CAPS Take 3 Capsules (6 mg) by mouth at bedtime prazosin 55962928873 Desmond Doan MD OMEPRAZOLE 20 MG CPDR TAKE ONE CAPSULE BY MOUTH ONE TIME DAILY BEFORE A MEAL. omeprazole 06326992105 Desmond Doan MD BUSPIRONE HCL 30 MG TABS Take 1 Tablet (30 mg) by mouth 2 times daily. buspirone 61315328681 Desmond Doan MD GABAPENTIN 300 MG CAPS TAKE ONE CAP BY MOUTH TWICE DAILY GABAPENTIN 86435892946 Florin Paris MD PRISTIQ 100 MG [id number] TAKE ONE TABLET BY MOUTH ONE TIME DAILY DESVENLAFAXINE SUCCINATE 77503130557 Florin Paris MD LYRICA 50 MG CAPS TAKE ONE CAPSULE BY MOUTH TWICE A DAY PREGABALIN 97224200286 Florin Paris MD BUSPIRONE HCL 30 MG TABS TAKE ONE TAB BY MOUTH TWICE DAILY. BUSPIRONE HCL 14753902359 Florin Paris MD LEVETIRACETAM 500 MG TABS TAKE ONE TAB BY MOUTH TWICE DAILY LEVETIRACETAM 64454805970 Florin Paris MD TOPIRAMATE 25 MG TABS TAKE ONE TABLET BY MOUTH TWICE A DAY TOPIRAMATE 68942116870 Florin Paris MD LORAZEPAM 1 MG TABS TAKE ONE TAB BY MOUTH EVERY 6 HOURS IF NEEDED FOR ANXIETY LORAZEPAM 17954869437 Florin Paris MD DIAZEPAM 5 MG/5ML SOLN TAKE 2MLS BY MOUTH EVERY 8 HOURS IF NEEDED FOR SEIZURES DIAZEPAM [id number] Florin Paris MD Medications Administered No information available. Allergies, Adverse Reactions, Alerts Allergy Name Reaction Description Start Date Severity Statu s Provider TOPIRAMATE Other - Describe In Comment Field Mild Active Desmondsusannah Reynolds QUETIAPINE FUMARATE Edema Severe Active Desmondsusannah Doan MD LAMOTRIGINE Andrew-Juan Syndrome Severe Active Desmond Reynaldo Franki Reynolds PRAZOSIN HCL Moderate Active Florin Paris MD EFFEXOR Severe Active Walkertowndebbie Paris MD SEROQUEL Moderate Active Florindebbie Paris MD CLARITIN Severe Active Florin E Raina FREEMAN HYDROXYZINE HCL Severe Active Rup ert E Raina FREEMAN Results Date Name Value Unit Range Flag Description Lab Report: LEVETIRACETAM LEVETIRACETM 19 ug/mL levETIRA cetam [Mass/volume] in Serum or Plasma Internal Other: Authorizatio n - OBS [id number] 1 N PT Jerry g Authorization Date Chart Maintenance: [facility] re cords review GLOBULIN SER 3.2 Globulin , Serum PH, URINE 6.0 PH, URINE LEUES Trace Leukocyte est erase [Presence] in Urine by Test strip CA 9.4 mg/dL Calcium [Mass/volume] in Serum or Plasma KETONES UA Negative mg/dL Ketones [Mass/volume] in Urine by Test strip ABSOLUTE BAS completed 10*3/uL Basoph ils [#/volume] in Blood URBC None Seen /[HPF] Erythrocyte s [#/area] in Urine sediment by Microscopy high power field BLD STL Trace Hemoglobin.ga stroint estinal [Presence] in Stool NON-HDL CHOL 199 mg/dL choleste rol, non-HDL, total CHOL/HDL 6.10 cholesterol/ HDL ratio, serum CO2 TOTAL 23 mmol/L carbon diox jo ann, serum, total GLUCOSE SER 100 mg/dL Glucose [Mass/volume] in Serum or Plasma TRIGLYC TOT 419 mg/dL Triglycer jo ann [Mass/volume] in Serum or Plasma - mg/dL UA COLOR Yellow Color of Uri ne BUN/CREAT 17 Urea nitrogen/Creatinine [Mass Ratio] in Serum or Plasma BACTERIA URN Many Bacteria [#/area] in Urine sediment by Microscopy high power field WBCS MICRO U 26-50 {Cells}/[ HPF] WBC urine on microscopy NITRITE URN Negative Nitrite [Presence] in Urine by Test strip ANION GAP 9 Anion gap 4 in Serum or Plasma SODIUM 138 mmol/L Sodium [Moles/volume] in Serum or Plasma A/G RATIO 1.3 Albumin/Monique bulin [Mass Ratio] in Serum or Plasma BILI TOTAL 0.5 mg/dL Bilirubin. total [Mass/volume] in Serum or Plasma SGPT (ALT) 17 U/L Alanine aminotransferase [Enzymatic activity/volume] in Serum or Plasma SGOT (AST) 18 U/L Aspartate aminotransferase [Enzymatic activity/volume] in Serum or Plasma PROTEIN, TOT 7.3 g/dL Protein [Mass/volume] in Serum or Plasma POTASSIUM 4.5 mmol/L Potassium [Moles/volume] in Serum or Plasma HGBA1C 6.1 % Hemoglobin A1c/Hemoglobin, total in Blood - % HDL 39 mg/dL Cholesterol i n HDL [Mass/volume] in Serum or Plasma - mg/dL CREATININE 0.90 mg/dL Creatinine [Mass/volume] in Serum or Plasma CHOLESTEROL 238 mg/dL Cholester ol [Mass/volume] in Serum or Plasma - mg/dL CHLORIDE 106 mmol/L Chloride [Moles/volume] in Serum or Plasma BUN 15 mg/dL Urea nitrogen [Mass/volume] in Serum or Plasma ALK PHOS 93 U/L Alkaline lindsay sphatase [Enzymatic activity/volume] in Blood ALBUMIN 4.1 g/dL Albumin [Mass/volume] in Serum or Plasma Office Visit: brain MRI abno rmalities fax MEDS REVIEW Done Documenta tion of current medications (procedure) SMOK STATUS former smoker Tob acco smoking status Internal Other: Verbal Autho rization/Emergency Contact - OBS VERBAL_EMER DONE Verbal au thorization and emergency contact Internal Other: Authorizatio n - OBS [email or web address] Yes Authoriza tion: Release of Information - Authorize [facility] - Payment and Healthcare Operations ROIAUTHOTHER Yes Authoriz ation: Release of Information - Authorize Others/Insurance - Payment and Healthcare Operations HIECONSENT Yes Consent To Release information to the Health Information Exchange (HIE) [email or web address] Yes Authorizat ion: Authorization for [facility] to leave messages, voicemail, send text messages, send emails AUTHRELHCARE Yes Authoriz ation: Release/Retrieval of Information to/from Healthcare Facilities, Pharmacy Benefit Payers and Providers AUTHPRIVPRAC Yes Authoriz ation: Notice of privacy practices AUTHBENEFIT Yes Authoriza tion: Assignment of Benefits and Payment Agreement Plan of Care Type Date Detail Pending order Follow up Pending order Follow up Pending Order exclud ed from report: Pending order Levetiracetam (K eppra) Pending order Patient Notifica tion Pending order Other Handout Pending order Patient Instruct ions Procedures Code Procedure Name Date Entry Date [facility]-[id number] Documentation of current medicatio ns CPT-25747 Nerve Conduction 5-6 studies CPT-14298 EMG with NCS (5+ muscles) - 2 limbs 10/26 ORDERS Follow up ORDERS Levetiracetam (Keppra) 03/20 ORDERS Patient Notification ORDERS Other Handout [facility]-[id number] Documentation of current medicatio ns ORDERS Patient Instructions CPT-23894 EEG EXTENDED (> 1 HOUR) (END) CPT-75372 Nerve Conduction 9-10 studies CPT-92593 EMG with NCS (5+ muscles) - 1 limb 03/03 CPT-63532 EMG with NCS (4 or fewer muscles) - 1 botello b Vital Signs Date Name Value Unit Description BMI (Body Mass Index) 46.82 kg/m2 Bod y Mass Index (Ratio) BP Diastolic 70 mm[Hg] blood pressu re, diastolic BP Systolic 110 mm[Hg] blood pressur e, systolic Heart Rate 68 /min pulse rate Height 59 [in_us] height E&M Weight Measured 105.00 kg weight in kilograms E&M Weight Measured 231 [lb_av] weight E& M Weight Measured 231 [lb_av] weight E& M Body Temperature 36.78 [degF] temperat ure E&M Respiratory Rate 16 /min respirat ory rate E&M Immunizations No information available. Advance Directives No information available.
[2025-07-08 06:10] LABS: Albumin* 4.6 g/dL (3.3-5.0); Chloride* 108 mmol/L (96-114); Sodium* 141 mmol/L (135-149)
[2025-07-08 06:11] LABS: Potassium* 4.0 mmol/L (3.6-5.1)
[2025-07-08 06:13] LABS: Alanine Aminotransferase* 20 U/L (4-35); Aspartate Amino Transferase* 22 U/L (12-35); Blood Urea Nitrogen* 11 mg/dL (5-24); Creatinine* 0.9 mg/dL (0.5-1.5); Est. Creatinine Clearance* 95.96; Estimated Glomerular Filt Rate 81 ml/min
[2025-07-08 06:14] LABS: Alkaline Phosphatase* 80 U/L (40-150); Anion Gap 12 mEq/L (7-15); Bilirubin Total* 0.9 mg/dL (0.1-1.5); Calcium* 9.8 mg/dL (8.4-10.6); Carbon Dioxide* 21 mmol/L (20-32); Glucose* 116 mg/dL (60-115); Total Protein* 7.9 g/dL (6.0-8.3)
--- NOTE | 2025-07-08 06:46 | CRLHL7_ITS ---
For Patients: As a result of the Century Cures Act, medical imaging exams and procedure reports are released immediately into your electronic medical record. You may view this report before your referring provider. If you have questions, please contact your health care provider. Indication: Epigastric pain, distended gallbladder on CT TECHNIQUE: Ultrasound abdomen limited. Sonographic images of the right upper quadrant were obtained using lock-scale and color Doppler images. Comparison: Abdomen and pelvis CT 07/08/2025 FINDINGS: Gallbladder: Numerous gallstones including stones at the gallbladder neck. Borderline gallbladder wall thickness at 3 millimeters. Trace pericholecystic fluid questioned. Positive sonographic Doty`s sign. Common bile duct: 3 mm. Impression: Cholelithiasis with trace pericholecystic fluid questioned and positive sonographic Doty`s sign. This is considered suspicious for acute cholecystitis. Dictated by Paul Mistry MD @ 07/08/2025 7:23:45 AM (Electronically Signed)
[2025-07-08] MEDS: HYDROCODONE-ACETAMIN 5-325 MG 1 TAB PO ×2 (07:08→21:59)
[2025-07-08] MEDS: LACTATED RINGERS 1000 ML 1,000 ML 125 ML IV ×5 (08:14→16:00)
--- NOTE | 2025-07-08 12:34 | PM.IMHP1 ---
Assessment and Plan Assessment and plan (1) Cholecystitis with cholelithiasis: Problem comment: - OR today, Tigre aware. NPO. IV pain medication. - lipase also mildly elevated. IVF. Recheck in am after lap lali. If lipase remains elevated, may need to consider stopping Mounjaro indefinitely Status: Acute (2) Type 2 diabetes mellitus: Problem comment: 10/07/24: A1c 7.9 % 03/10/25: Cr 1.02 mg/dL - Hold mounjaro. ISS Status: Chronic (3) VALERIE (obstructive sleep apnea): Problem comment: 10/12/2017 AHI 9.4 Status: Chronic Hospitalist- H&P: HPI History of Present Illness Time Seen by Provider: : Date Seen: 07/08/25 Chief complaint: abdominal pain Narrative: Amarilys Molina is a 45 year old female with DM2 on Mounjaro, borderline intellectual disability, fibromyalgia, VALERIE, PTSD, chronic insomnia, morbid obesity, nonalcoholic fatty liver disease, major depression, mixed hyperlipidemia, generalized anxiety disorder, nephrolithiasis with history of renal calculi, and neuropathy woke up at 3:00 a.m. with epigastric abdominal pain and a feeling like heartburn. She could not get back to sleep and she recalled that she forgot to take her daily omeprazole, so she did that but the heartburn worsened and by 4:00 a.m. started to go through to her back. Then she started to feel nauseous, so she came to the ER. She denies fevers, chills, shortness of breath, should her shoulder pain, or leg pain. Note that patient and her daughter denied allergies to medications when I asked, but I find in [facility] records that she has the following allergies listed there: claritin (swelling of the hands and face, edema, throat swelling/closing) Hydroxyzine, okay with Benadryl Lamotrigine Quetiapine (Swelling in face in hands Patient says I swell up.) Seroquel (swelling in hands and face) Topiramate (kidney stones) I discussed this list with the patient and she stated that she has since tried Claritin again and did not have a reaction to it. She confirms that Benadryl is okay for her to take and that the other allergies are probably right. She confirms that she does not want blood products. Review of Systems Status of ROS: Reports: 10 or more systems reviewed and unremarkable except as noted in History and below [facility], [facility] Medical History (Updated 07/08/25 @ 15:05 by Rosio Doan MD) Nexplanon in place ?Z97.5 - Presence of (intrauterine) contraceptive device (ICD-10) Neuropathy ?G62.9 - Polyneuropathy, unspecified (ICD-10) Renal calculi ?N20.0 - Calculus of kidney (ICD-10) Generalized anxiety disorder ?F41.1 - Generalized anxiety disorder (ICD-10) Mixed hyperlipidemia ?E78.2 - Mixed hyperlipidemia (ICD-10) Cyst of ovary ?N83.209 - Unspecified ovarian cyst, unspecified side (ICD-10) Type 2 diabetes mellitus ?E11.9 - Type 2 diabetes mellitus without complications (ICD-10) Severe episode of recurrent major depressive disorder, without psychotic features ?F33.2 - Major depressive disorder, recurrent severe without psychotic features (ICD-10) NAFLD (nonalcoholic fatty liver disease) ?K76.0 - Fatty (change of) liver, not elsewhere classified (ICD-10) Chronic insomnia ?F51.04 - Psychophysiologic insomnia (ICD-10) PTSD (post-traumatic stress disorder) ?F43.10 - Post-traumatic stress disorder, unspecified (ICD-10) VALERIE (obstructive sleep apnea) ?G47.33 - Obstructive sleep apnea (adult) (pediatric) (ICD-10) Renal cyst ?N28.1 - Cyst of kidney, acquired (ICD-10) Amphetamine use disorder, mild, in early remission ?F15.11 - Other stimulant abuse, in remission (ICD-10) Borderline intellectual disability ?R41.83 - Borderline intellectual functioning (ICD-10) Fibromyalgia ?M79.7 - Fibromyalgia (ICD-10) Abnormal glandular Papanicolaou smear of cervix ?R87.619 - Unspecified abnormal cytological findings in specimens from cervix uteri (ICD-10) Surgical History (Updated 07/08/25 @ 14:55 by Rosio Doan MD) H/O lithotripsy ?Z98.890 - Other specified postprocedural states (ICD-10) H/O section ?Z98.891 - History of uterine scar from previous surgery (ICD-10) Status post breast reduction ?Z98.890 - Other specified postprocedural states (ICD-10) Hx of colonoscopy ?Z98.890 - Other specified postprocedural states (ICD-10) History of bilateral carpal tunnel release ?Z98.890 - Other specified postprocedural states (ICD-10) H/O esophagogastroduodenoscopy ?Z98.890 - Other specified postprocedural states (ICD-10) Family History (Updated 07/08/25 @ 14:56 by Rosio Doan MD) Other Coronary artery disease Depression High blood pressure High cholesterol Lung cancer Thyroid disease Social History (Updated 07/08/25 @ 14:58 by Rosio Doan MD) Narrative: Works as a [employer]. Has moved back and forth between [facility] and [place] the last few years. Nonsmoker. Denies alcohol use. Denies recreational drug use. Smoking Status: Never smoker Non-prescribed substance use: denies use Meds Home Medications and Allergies Home Medications ?Medication ?Instructions ?Recorded ?Confirmed ?Type omeprazole 20 mg capsule,delayed 20 mg PO DAILY 06/01/22 07/08/25 History release venlafaxine 150 mg 150 mg PO DAILY 06/01/22 07/08/25 History capsule,extended release 24 hr atorvastatin 40 mg tablet 40 mg PO QPM 07/08/25 07/08/25 History dextromethorphan IR 45 1 tab PO BID 07/08/25 07/08/25 History mg-bupropion ER 105 mg biphasic tablet (Auvelity) losartan 25 mg tablet 12.5 mg PO DAILY 07/08/25 07/08/25 History tirzepatide 12.5 mg/0.5 mL 12.5 mg subcut Q7D 07/08/25 07/08/25 History subcutaneous pen injector (Mounjaro) Allergies Allergy/AdvReac Type Severity Reaction Status Date / Time hydroxyzine Allergy Verified 07/08/25 12:57 lamotrigine Allergy Verified 07/08/25 12:57 loratadine Allergy Verified 07/08/25 12:57 quetiapine Allergy Verified 07/08/25 12:57 Exam Narrative: Exam Narrative: General: No acute distress. Awake alert oriented x3. Morbidly obese. HEENT: Normocephalic atraumatic, pupils equally round and reactive to light and accommodation. Oropharynx clear. Mucous membranes are moist. No cervical lymphadenopathy, thyromegaly or carotid bruits. No JVD. Cardiovascular: Regular rate and rhythm. No murmurs, gallops, or rubs. Chest: No increased work of breathing. Clear to auscultation bilaterally. No crackles or wheezes. Abdomen: Bowel sounds present. Soft, nondistended, tender in the epigastrium and right upper quadrant, no rebound tenderness or guarding. Doty sign is positive. No hepatosplenomegaly or masses. Extremities: No edema, no cyanosis or clubbing. Skin: No jaundice, no pallor, no rashes on visible skin. Neuro: Grossly intact. No focal deficits. Const: Vital Signs, click to edit/add: Vital Signs - 24 hr 07/08/25 05:09 07/08/25 06:46 07/08/25 08:21 Temperature 97.9 F Pulse Rate 77 Pulse Rate [Pulse Oximeter] 92 98 Pulse Rate [Right Radial] Respiratory Rate 16 18 18 Blood Pressure [Ri ght Arm] Blood Pressure [Ri ght Upper Arm] 123/94 H 124/82 Pulse Oximetry 99 98 100 Oxygen Delivery Me thod Room Air Room Air 07/08/25 08:30 07/08/25 09:54 Temperature 98.1 F Pulse Rate 86 Pulse Rate [Pulse Oximeter] Pulse Rate [Right Radial] 79 Respiratory Rate 18 16 Blood Pressure [Ri ght Arm] 121/82 Blood Pressure [Ri ght Upper Arm] Pulse Oximetry 96 95 Oxygen Delivery Me thod Room Air Hospitalist - H&P: Result Labs Labs: Short CBC 07/08/25 Range/Units 05:50 WBC 10.46 (4.50-11.00) K/uL Hgb 14.2 (12.0-16.0) gm/dL Hct 42.8 (33.0-51.0) % Plt Count 284 (140-440) K/uL BMP 07/08/25 05:50 Sodium 141 Potassium 4.0 Chloride 108 Carbon Dioxide 21 BUN 11 Creatinine 0.9 Glucose 116 H Calcium 9.8 Liver Function 07/08/25 Range/Units 05:50 Total Bilirubin 0.9 (0.1-1.5) mg/dL AST 22 (12-35) U/L ALT 20 (4-35) U/L Alkaline Phosphatase 80 (40-150) U/L Albumin 4.6 (3.3-5.0) g/dL Urine 07/08/25 Range/Units 05:09 Urine Color Yellow (Yellow) Urine Appearance Clear (Clear) Urine pH 6.5 (5.0-8.5) Ur Specific [place] 1.020 (1.000-1.030) Urine Protein Negative (Negative) Urine Glucose (UA) Negative (Negative) 07/08/2025 EKG: Normal sinus rhythm, 87 beats per minute, normal EKG. Ordering Physician: Kimberly Rowe M.D. Date of Service: 07/08/25 Procedure(s): CT abdomen pelvis w con Accession Number(s): [id number] cc: Provider,Not a Local; Kimberly Rowe M.D.~ For Patients: As a result of the Cures Act, medical imaging exams and procedure reports are released immediately into your electronic medical record. You may view this report before your referring provider. If you have questions, please contact your health care provider. INDICATION: Severe epigastric pain, history of GERD. COMPARISON: 05/06/2021 TECHNIQUE: CT of the abdomen and pelvis with intravenous contrast. Multiplanar axial, coronal, and sagittal reformats were reconstructed. Contrast: 82 mL Isovue 370. FINDINGS: Lung bases: Normal. Liver: Normal. No mass. Gallbladder and bile ducts: The gallbladder is distended but there is not any pericholecystic edema or obvious gallbladder wall thickening. No bile duct dilation. Pancreas: Normal. Spleen: Normal. Adrenal glands: Normal. Kidneys: Normal overall renal size and position. There is a 1.2 centimeter right renal cyst. No calculi. Mildly patulous upper collecting systems. The degree of dilatation is better than before. The ureters are not dilated. Urinary bladder: Normal. Pelvis: There is a right ovarian or paraovarian cyst that measures 1.8 centimeters. Vessels: Normal. Bowel: No dilated or inflamed bowel. appendix. Mild stool burden. Lymph nodes: No adenopathy. Peritoneum: No ascites. Abdominal wall: No hernia. Bones: No fractures. No focal worrisome bone lesions. IMPRESSION: 1. Distended gallbladder without CT findings of acute cholecystitis. 2. There is a 1.8 centimeter right ovarian versus paraovarian cyst. Cyst of this size are generally physiologic in a patient this age. Consider follow-up/better characterization with ultrasound after 2-3 cycles. Please note that all CT scans at this facility use dose modulation, iterative reconstruction, and/or weight-based dosing when appropriate to reduce radiation dose to as low as reasonably achievable. Dictated by Nicole Monge MD @ 07/08/2025 6:34:16 AM (Electronically Signed) Ordering Physician: Kimberly Rowe M.D. Date of Service: 07/08/25 Procedure(s): US gallbladder Accession Number(s): [id number] cc: Provider,Not a Local; Kimberyl Rowe M.D.~ For Patients: As a result of the Century Cures Act, medical imaging exams and procedure reports are released immediately into your electronic medical record. You may view this report before your referring provider. If you have questions, please contact your health care provider. Indication: Epigastric pain, distended gallbladder on CT TECHNIQUE: Ultrasound abdomen limited. Sonographic images of the right upper quadrant were obtained using lock-scale and color Doppler images. Comparison: Abdomen and pelvis CT 07/08/2025 FINDINGS: Gallbladder: Numerous gallstones including stones at the gallbladder neck. Borderline gallbladder wall thickness at 3 millimeters. Trace pericholecystic fluid questioned. Positive sonographic Doty`s sign. Common bile duct: 3 mm. Impression: Cholelithiasis with trace pericholecystic fluid questioned and positive sonographic Doty`s sign. This is considered suspicious for acute cholecystitis. Dictated by Paul Mistry MD @ 07/08/2025 7:23:45 AM (Electronically Signed)
[2025-07-08 14:52] LABS: Albumin* 3.9 g/dL (3.3-5.0); Chloride* 106 mmol/L (96-114); Potassium* 4.2 mmol/L (3.6-5.1)
[2025-07-08 14:55] LABS: Alanine Aminotransferase* 21 U/L (4-35); Alkaline Phosphatase* 72 U/L (40-150); Aspartate Amino Transferase* 28 U/L (12-35); Bilirubin Total* 1.0 mg/dL (0.1-1.5); Blood Urea Nitrogen* 12 mg/dL (5-24); Calcium* 9.3 mg/dL (8.4-10.6); Carbon Dioxide* 25 mmol/L (20-32); Creatinine* 0.8 mg/dL (0.5-1.5); Est. Creatinine Clearance* 105.64; Estimated Glomerular Filt Rate 93 ml/min; Glucose* 113 mg/dL (60-115); Total Protein* 6.7 g/dL (6.0-8.3)
--- NOTE | 2025-07-08 15:07 | PM.GSCN ---
History of Present Illness Consult details Date Seen: 07/08/25 Consult date: 07/08/25 Narrative: 45-year-old female with history of diabetes and sleep apnea presented to emergency room with epigastric and right upper quadrant pain. Patient states that the pain started in the middle of the night. The pain was severe and sharp. The pain radiates to her back. Patient presented to emergency room because of severity of the pain. She denied vomiting. She was passing gas. Her last bowel movement was about 3 days ago. I personally reviewed patient's workup in the emergency room. She was found to have normal WBC. Her liver function tests were normal and she had mildly elevated lipase of 313. An abdominal CT was obtained that showed distended gallbladder with no inflammation around the pancreas, no dilated small or large intestine. Gallbladder ultrasound was obtained that showed distended gallbladder with mild gallbladder wall thickening of 3 mm, there was evidence of cholelithiasis. Common bile duct was measured at 3 mm. Review of Systems Narrative: General: no fevers HENT: no problems swallowing CV: no shortness of breath Resp: no cough GI: No nausea, vomiting, abdominal pain : no dysuria, no increased urinary frequency, no hematuria Skin: no new rashes Musculoskeletal: no back pain Neuro: no muscle weakness Psyche: no depression, no anxiety PFSH PFSH Medical History Nexplanon in place ?Z97.5 - Presence of (intrauterine) contraceptive device (ICD-10) Neuropathy ?G62.9 - Polyneuropathy, unspecified (ICD-10) Renal calculi ?N20.0 - Calculus of kidney (ICD-10) Generalized anxiety disorder ?F41.1 - Generalized anxiety disorder (ICD-10) Mixed hyperlipidemia ?E78.2 - Mixed hyperlipidemia (ICD-10) Cyst of ovary ?N83.209 - Unspecified ovarian cyst, unspecified side (ICD-10) Type 2 diabetes mellitus ?E11.9 - Type 2 diabetes mellitus without complications (ICD-10) Severe episode of recurrent major depressive disorder, without psychotic features ?F33.2 - Major depressive disorder, recurrent severe without psychotic features (ICD-10) NAFLD (nonalcoholic fatty liver disease) ?K76.0 - Fatty (change of) liver, not elsewhere classified (ICD-10) Chronic insomnia ?F51.04 - Psychophysiologic insomnia (ICD-10) PTSD (post-traumatic stress disorder) ?F43.10 - Post-traumatic stress disorder, unspecified (ICD-10) VALERIE (obstructive sleep apnea) ?G47.33 - Obstructive sleep apnea (adult) (pediatric) (ICD-10) Renal cyst ?N28.1 - Cyst of kidney, acquired (ICD-10) Amphetamine use disorder, mild, in early remission ?F15.11 - Other stimulant abuse, in remission (ICD-10) Borderline intellectual disability ?R41.83 - Borderline intellectual functioning (ICD-10) Fibromyalgia ?M79.7 - Fibromyalgia (ICD-10) Abnormal glandular Papanicolaou smear of cervix ?R87.619 - Unspecified abnormal cytological findings in specimens from cervix uteri (ICD-10) Surgical History H/O lithotripsy ?Z98.890 - Other specified postprocedural states (ICD-10) H/O section ?Z98.891 - History of uterine scar from previous surgery (ICD-10) Status post breast reduction ?Z98.890 - Other specified postprocedural states (ICD-10) Hx of colonoscopy ?Z98.890 - Other specified postprocedural states (ICD-10) History of bilateral carpal tunnel release ?Z98.890 - Other specified postprocedural states (ICD-10) H/O esophagogastroduodenoscopy ?Z98.890 - Other specified postprocedural states (ICD-10) Family History Other Coronary artery disease Depression High blood pressure High cholesterol Lung cancer Thyroid disease Social History Narrative: Works as a [employer]. Has moved back and forth between [facility] and [place] the last few years. Nonsmoker. Denies alcohol use. Denies recreational drug use. Smoking Status: Never smoker Non-prescribed substance use: denies use Meds Home Medications and Allergies Home Medications ?Medication ?Instructions ?Recorded ?Confirmed ?Type omeprazole 20 mg capsule,delayed 20 mg PO DAILY 06/01/22 07/08/25 History release venlafaxine 150 mg 150 mg PO DAILY 06/01/22 07/08/25 History capsule,extended release 24 hr atorvastatin 40 mg tablet 40 mg PO QPM 07/08/25 07/08/25 History dextromethorphan IR 45 1 tab PO BID 07/08/25 07/08/25 History mg-bupropion ER 105 mg biphasic tablet (Auvelity) losartan 25 mg tablet 12.5 mg PO DAILY 07/08/25 07/08/25 History tirzepatide 12.5 mg/0.5 mL 12.5 mg subcut Q7D 07/08/25 07/08/25 History subcutaneous pen injector (Buzzunmickeyro) Allergies Allergy/AdvReac Type Severity Reaction Status Date / Time hydroxyzine Allergy Verified 07/08/25 12:57 lamotrigine Allergy Verified 07/08/25 12:57 loratadine Allergy Verified 07/08/25 12:57 quetiapine Allergy Verified 07/08/25 12:57 Exam Narrative: Exam Narrative: General appearance: Alert, cooperative, and in no distress Pulmonary: Chest symmetric, lungs clear bilaterally Cardiovascular Heart: Regular rate and rhythm, S1, S2, no murmurs/rubs/gallops Gastrointestinal Abdominal: soft, not distended, tender to palpation in the right upper quadrant with positive Doty sign. Skin: Normal skin color, texture, and turgor. No rashes or lesions. Psychiatric: Alert, cooperative, normal affect. Const: Vital Signs, click to edit/add: Vital Signs - 24 hr 07/08/25 05:09 07/08/25 06:46 07/08/25 08:21 Temperature 97.9 F Pulse Rate 77 Pulse Rate [Pulse Oximeter] 92 98 Pulse Rate [Right Radial] Respiratory Rate 16 18 18 Blood Pressure [Ri ght Arm] Blood Pressure [Ri ght Upper Arm] 123/94 H 124/82 Pulse Oximetry 99 98 100 Oxygen Delivery Me thod Room Air Room Air 07/08/25 08:30 07/08/25 09:54 07/08/25 13:40 Temperature 98.1 F Pulse Rate 86 Pulse Rate [Pulse Oximeter] Pulse Rate [Right Radial] 79 Respiratory Rate 18 16 Blood Pressure [Ri ght Arm] 121/82 Blood Pressure [Ri ght Upper Arm] Pulse Oximetry 96 95 96 Oxygen Delivery Me thod Room Air 07/08/25 13:40 Temperature 97.9 F Pulse Rate Pulse Rate [Pulse Oximeter] Pulse Rate [Right Radial] 84 Respiratory Rate 18 Blood Pressure [Ri ght Arm] 111/69 Blood Pressure [Ri ght Upper Arm] Pulse Oximetry [address] thod Room Air Results Labs Labs: Abnormal lab results 07/08/25 07/08/25 07/08/25 Range/Units 05:09 05:34 05:50 Lymph # (Auto) 3.00 H (0.90-2.90) K/uL Glucose 116 H (60-115) mg/dL C-Reactive Protein < 0.5 L (0.5-1.0) mg/dL Lipase 313 H (23-300) U/L Urine Ketones Trace A (Negative) Urine Urobilinogen 2.0 A (0.2-1.0) Urine Bacteria Moderate A (None) POC Troponin I 0.00 L (0.01-0.04) ng/ml Diabetes panel 07/08/25 07/08/25 Range/Units 05:50 14:25 Sodium 141 (135-149) mmol/L Potassium 4.0 4.2 (3.6-5.1) mmol/L Chloride 108 106 (96-114) mmol/L Carbon Dioxide 21 25 (20-32) mmol/L BUN 11 12 (5-24) mg/dL Creatinine 0.9 0.8 (0.5-1.5) mg/dL Glucose 116 H 113 (60-115) mg/dL Calcium 9.8 9.3 (8.4-10.6) mg/dL AST 22 28 (12-35) U/L ALT 20 21 (4-35) U/L Alkaline Phosphatase 80 72 (40-150) U/L Total Protein 7.9 6.7 (6.0-8.3) g/dL Albumin 4.6 3.9 (3.3-5.0) g/dL Calcium panel 07/08/25 07/08/25 Range/Units 05:50 14:25 Calcium 9.8 9.3 (8.4-10.6) mg/dL Albumin 4.6 3.9 (3.3-5.0) g/dL Pituitary panel 07/08/25 07/08/25 Range/Units 05:50 14:25 Sodium 141 (135-149) mmol/L Potassium 4.0 4.2 (3.6-5.1) mmol/L Chloride 108 106 (96-114) mmol/L Carbon Dioxide 21 25 (20-32) mmol/L BUN 11 12 (5-24) mg/dL Creatinine 0.9 0.8 (0.5-1.5) mg/dL Glucose 116 H 113 (60-115) mg/dL Calcium 9.8 9.3 (8.4-10.6) mg/dL Adrenal panel 07/08/25 07/08/25 Range/Units 05:50 14:25 Sodium 141 (135-149) mmol/L Potassium 4.0 4.2 (3.6-5.1) mmol/L Chloride 108 106 (96-114) mmol/L Carbon Dioxide 21 25 (20-32) mmol/L BUN 11 12 (5-24) mg/dL Creatinine 0.9 0.8 (0.5-1.5) mg/dL Glucose 116 H 113 (60-115) mg/dL Calcium 9.8 9.3 (8.4-10.6) mg/dL Total Bilirubin 0.9 1.0 (0.1-1.5) mg/dL AST 22 28 (12-35) U/L ALT 20 21 (4-35) U/L Alkaline Phosphatase 80 72 (40-150) U/L Total Protein 7.9 6.7 (6.0-8.3) g/dL Albumin 4.6 3.9 (3.3-5.0) g/dL All other labs normal. Progress Note:A&P Assessment and plan (1) Cholecystitis with cholelithiasis: Status: Acute Plan 45-year-old female presents with right upper quadrant pain that is most likely due to acute cholecystitis. I discussed with the patient and her family her laboratory and imaging findings. Patient's CT and ultrasound both showed distended gallbladder with mild gallbladder wall thickening. There was also evidence of cholelithiasis. Patient continues to have severe pain and has positive Doty sign. Patient's lipase is mildly elevated at 313. Patient has no inflammatory changes on CT scan. Her common bile duct is normal so it would be unusual to have her elevated lipase due to cholelithiasis. Patient is on Monjaro, and we will re check her lipase liver function tests. I recommended to proceed with laparoscopic cholecystectomy. Procedure was discussed in detail. The risks associated procedure including infection, bleeding, injury to intra-abdominal organs, injury to the common bile duct, and the need for additional procedures were all discussed with the patient, and she agreed to proceed.
[2025-07-08 15:13] LABS: Anion Gap 6 mEq/L (7-15); Sodium* 137 mmol/L (135-149)
[2025-07-08] MEDS: PIPERACILLIN/TAZOBACTAM 3.375 GM in 0.9 % SODIUM CHLORIDE Mini-bag 100 ML IVPB (15:30)
[2025-07-08] MEDS: LIDOCAINE 1%-EPI 1:100,000 20 ML INFILTRATI (16:35)
[2025-07-08] MEDS: BUPIVACAINE 0.25% 30 ML INJECTION (16:35)
--- NOTE | 2025-07-08 16:51 | PM.GSPRC ---
Operative Note Date of procedure: 07/08/25 Pre-op diagnosis: 1. Acute cholecystitis. Post-op diagnosis: Same Type of Procedure: 1. Laparoscopic cholecystectomy. Indications: 45-year-old female presented to emergency room with epigastric and right upper quadrant pain that started last night. The pain was getting more severe and was radiating to the back. Patient decided to present to the emergency room. I personally reviewed her workup in the emergency room. Her WBC was normal. Her liver function tests were normal. Her lipase was minimally elevated at 313. An abdominal CT was obtained that showed a distended gallbladder with no inflammation near her pancreas. There was no dilated small or large intestine. A gallbladder ultrasound was obtained that showed presence of cholelithiasis, the gallbladder wall was measured at 3 mm thick, the gallbladder was again distended, and common bile duct was normal. On clinical exam patient had tenderness to palpation the right upper quadrant with positive Doty sign. Given patient's clinical presentation and her imaging findings acute cholecystitis was suspected, and laparoscopic cholecystectomy was recommended. The procedure was discussed in detail. The risks associated procedure including infection, bleeding, injury to intra-abdominal organs, and injury to the common bile duct were all discussed with the patient, she agreed to proceed. Procedure Description: After discussing the risks and benefits of the procedure, the patient signed informed consent.? The operative site was marked and the patient was brought to the operating room and placed on the operating table in supine position.? Care was taken to pad the patient's pressure points.?? The patient was then intubated by anesthesia.?? The operative site was then prepped and draped in the usual sterile fashion.? A time-out was then performed. A 5-mm laparoscopy port was placed in the left upper quadrant guided by a 5-mm laparoscope placed into a translucent trochar.~ Passage through the layers of the abdominal wall was visualized with the laparoscope.~ A pneumoperitoneum was established. A 0-degree 5-mm laparoscope was advanced into the abdomen. The abdomen was briefly surveyed, and omental adhesions were noted just inferior to the umbilicus. A 10-mm port were placed supraumbilically just superior to the adhesions and two more 5 mm ports were placed on the right under direct visualization by laparoscope. The camera was then changed to 10 mm 30-degree scope and placed into the abdomen through the 10 mm port. The left upper quadrant port entrance was examined and no injury to intra-abdominal organs was identified. The gallbladder was identified, and the gallbladder was distended. 50 mL of bile was aspirated from the gallbladder in order to grasp the gallbladder. The gallbladder fundus was grasped, and retracted cephalad. The infundibulum was grasped and retracted laterally, exposing the peritoneum overlying the triangle of Calot. This was then divided and exposed in a blunt fashion and with hook cautery. Common bile duct was not identified but care was taken not to injure it. The cystic duct was clearly identified and bluntly dissected circumferentially. The node of Calot was identified. Inflammatory tissue and a small vein just superior to the node of Calot on the gallbladder surface was clipped with 5 mm clip on the patient's side to avoid bleeding. Cystic artery was identified and tissues around it were dissected off. The cystic artery was clearly going into the gallbladder. The cystic artery was clipped withtwo 5 mm clips on the patient's side and a single clip on the specimen side. The cystic artery was divided between the clips with scissors. I then continued dissection in the triangle of Calot bluntly and with hook cautery. A collection of small veins was noted in the posterior gallbladder fossa. This was bluntly dissected circumferentially and small veins were divided with hook cautery. A clip was placed to control bleeding from 1 of these small veins. The cystic duct was circumferentially dissected and was clearly identified. The cystic duct was then doubly ligated with surgical clips on the patient's side and singly clipped on the gallbladder side and divided. The gallbladder was dissected from the liver bed in retrograde fashion using hookcautery. Large amount of gallbladder wall edema was encountered during this dissection. When the gallbladder was free, it was placed into an Endo-Catch bag. The supraumbilical incision fascia had to be enlarged with cautery to accommodate removal the gallbladder. The gallbladder was removed from the abdomen and sent to pathology. Surgical site was examined for bleeding. No bleeding was seen in the surgical field. The fascia of the infraumbilical incision was then closed with a running 0-0 vicryl. This closure was examined intra-abdominally, and no intra-abdominal structures were incarcerated in the closure. Pneumoperitoneum was completely reduced after viewing removal of the trocars under direct vision. The skin was then closed with 4-0 monocryl and steristrips were applied. Sterile gauze was placed over supraumbilical incision. Instrument, sponge, and needle counts were correct at closure and at the conclusion of the case. The patient was transferred to PACU in stable condition. Findings: Cholecystitis with large amount of gallbladder wall edema and pericholecystic fluid. Anesthesia: GETA Surgeon: Fredrick Landeros MD Estimated blood loss (mL): 10 Specimen: Gallbladder Condition: stable Disposition: PACU
--- NOTE | 2025-07-08 17:04 | P.ANES_ITS ---
Anesthesia Charges Start Date/Time Anesthesia Start Date: 07/08/25 Anesthesia Start Time: 15:10 Stop Date/Time Anesthesia Stop Date: 07/08/25 Anesthesia Stop Time: 17:00 Coding CPT Codes CPT Codes: ANESTH SURG UPPER ABDOMEN - 49991 ([id number]) P2 - PATIENT W/MILD SYST DISEASE, QZ - NET SQL DEVELOPER SVC W/O EQUIPMENT SERVICES ASSOCIATE BY
--- NOTE | 2025-07-08 17:04 | W.ANESCHARGE ---
Anesthesia Charges Start Date/Time Anesthesia Start Date: 07/08/25 Anesthesia Start Time: 15:10 Stop Date/Time Anesthesia Stop Date: 07/08/25 Anesthesia Stop Time: 17:00 Coding CPT Codes CPT Codes: ANESTH SURG UPPER ABDOMEN - 64467 ([id number]) P2 - PATIENT W/MILD SYST DISEASE, QZ - SPACE STUDIES FACULTY MEMBER SVC W/O DYE STAND LOADER BY
[2025-07-08] MEDS: LACTATED RINGERS 1000 ML 1,000 ML 100 ML IV (17:22)
[2025-07-08] MEDS: INSULIN ASPART 100 UNIT/ML SUBCUT (22:01)
[2025-07-09] VITALS: BP 100/63; PULSE 88; RESP 14; TEMP 36.6; O2SAT 94
[2025-07-09 03:00] VITALS: BP 97/57; PULSE 90; RESP 16; TEMP 36.7; O2SAT 95
[2025-07-09 06:37] LABS: Hematocrit* 36.1 % (33.0-51.0); Hemoglobin* 12.0 gm/dL (12.0-16.0); Immature Granulocytes Pct Auto 0.3 %; Mean Corpuscular HGB Conc 33 gm/dL (32-36); Mean Corpuscular Hemoglobin 31 pg (26-34); Mean Corpuscular Volume 95 fL (80-100); RDW Coefficient of Variation % 12.8 % (11.5-15.5); Red Blood Count* 3.82 m/uL (4.00-5.20); White Blood Count* 20.17 K/uL (4.50-11.00)
--- NOTE | 2025-07-09 06:43 | PC.NURSE ---
End of shift report [id number]: VSS. Afebrile. AxOx4. Ind in room. Tolerating regular diet. Pt rates pain from 4-0/10, prn pain meds offered and given with relief. Abdomen steri strips are intact. Bowel sounds active, reports passing gas. Denies nausea. Pt is ind in room. Pts daughter was at the bedside overnight. Call light within reach.?
[2025-07-09 06:47] LABS: Immature Granulocytes Abs Auto 0.10 K/uL (0.00-0.30); Lymphocytes Absolute Auto 1.70 K/uL (0.90-2.90); Slide Review Reflex No
[2025-07-09 07:00] VITALS: BP 100/61; PULSE 70; RESP 20; TEMP 36.8; O2SAT 93
--- NOTE | 2025-07-09 07:19 | P.GSPN_ITS ---
Subjective Subjective Date Seen: 07/09/25 Interval history: Patient did well overnight. Her abdomen is ?sore? but pain is controlled with pain medications. She tolerated diet yesterday. She went to the bathroom and urinated multiple times. She did not ambulate in the hallway. Exam Narrative: Exam Narrative: Abdomen is soft, not distended, tender to palpation on the right side. Steri- Strips over incisions except for the right lower incision, the Steri-Strips fell off. There is dried blood near the incision. Const: Vital Signs, click to edit/add: Vital Signs - 24 hr 07/08/25 08:21 07/08/25 08:30 07/08/25 09:54 Temperature 98.1 F Pulse Rate 77 86 Pulse Rate [Pulse Oximeter] Pulse Rate [Right Radial] 79 Respiratory Rate 18 18 16 Blood Pressure Blood Pressure [Ri ght Arm] 121/82 Pulse Oximetry 100 96 95 Oxygen Delivery Me thod Room Air Oxygen Flow Rate 07/08/25 13:40 07/08/25 13:40 07/08/25 16:55 Temperature 97.9 F 99.2 F Pulse Rate 116 H Pulse Rate [Pulse Oximeter] Pulse Rate [Right Radial] 84 Respiratory Rate 18 17 Blood Pressure 97/56 L Blood Pressure [Ri ght Arm] 111/69 Pulse Oximetry 96 96 99 Oxygen Delivery Me thod Room Air Nasal Cannula Oxygen Flow Rate 2 07/08/25 17:00 07/08/25 17:05 07/08/25 17:10 Temperature Pulse Rate 117 H 116 H 111 H Pulse Rate [Pulse Oximeter] Pulse Rate [Right Radial] Respiratory Rate 20 16 17 Blood Pressure 97/56 L 99/54 L 96/54 L Blood Pressure [Ri ght Arm] Pulse Oximetry 97 96 93 Oxygen Delivery Me thod Room Air Oxygen Flow Rate 1 07/08/25 17:15 07/08/25 17:20 07/08/25 17:25 Temperature 100.3 F H Pulse Rate 113 H 110 H 101 H Pulse Rate [Pulse Oximeter] Pulse Rate [Right Radial] Respiratory Rate 16 14 13 Blood Pressure 99/50 L 89/54 L 93/57 L Blood Pressure [Ri ght Arm] Pulse Oximetry 93 93 94 Oxygen Delivery Me thod Oxygen Flow Rate 07/08/25 17:33 07/08/25 17:45 07/08/25 18:00 Temperature 97.8 F Pulse Rate 104 H 101 H 95 Pulse Rate [Pulse Oximeter] Pulse Rate [Right Radial] Respiratory Rate 18 16 Blood Pressure 91/61 92/64 97/64 Blood Pressure [Ri ght Arm] Pulse Oximetry 93 96 Oxygen Delivery Me thod Nasal Cannula Nasal Cannula Nasal Cannula Oxygen Flow Rate 2 1 2 07/08/25 18:15 07/08/25 18:30 07/08/25 19:00 Temperature 97.5 F L 97.2 F L 97.7 F Pulse Rate 97 92 105 H Pulse Rate [Pulse Oximeter] Pulse Rate [Right Radial] Respiratory Rate 16 16 16 Blood Pressure 92/65 95/67 95/65 Blood Pressure [Ri ght Arm] Pulse Oximetry 97 91 96 Oxygen Delivery Me thod Room Air Room Air Room Air Oxygen Flow Rate 07/08/25 19:30 07/08/25 21:00 07/08/25 22:00 Temperature 97.7 F 98 F 98 F Pulse Rate 98 Pulse Rate [Pulse Oximeter] 98 96 Pulse Rate [Right Radial] Respiratory Rate 16 18 16 Blood Pressure 96/63 Blood Pressure [Ri ght Arm] 105/70 107/69 Pulse Oximetry 93 96 94 Oxygen Delivery Me thod Room Air Room Air Room Air Oxygen Flow Rate 07/08/25 23:00 07/09/25 00:00 07/09/25 03:00 Temperature 98.1 F 98 F 98.1 F Pulse Rate Pulse Rate [Pulse Oximeter] 92 88 90 Pulse Rate [Right Radial] Respiratory Rate 16 14 16 Blood Pressure Blood Pressure [Ri ght Arm] 103/58 L 100/63 97/57 L Pulse Oximetry 96 94 95 Oxygen Delivery Me thod Room Air Room Air Room Air Oxygen Flow Rate Progress Note:A&P Assessment and plan (1) S/P laparoscopic cholecystectomy: Status: Acute Plan 45-year-old female s/p laparoscopic cholecystectomy POD 1. Patient's lipase normalized. Her WBC went up to 20, this is most likely lagging from her acute cholecystitis. Patient tolerated diet. From surgery standpoint, she could be discharged home today.
[2025-07-09] MEDS: HYDROCODONE-ACETAMIN 5-325 MG 1 TAB PO (07:47)
[2025-07-09] MEDS: VENLAFAXINE ER 75 MG CAPSULE 150 MG PO (08:37)
--- NOTE | 2025-07-09 10:12 | P.DS_ITS ---
DS: Providers Provider Date Seen: 07/09/25 Date of admission: 07/08/2025 Primary care physician: Not a Local Provider Admitting Clinician: Rosio Doan MD Consults: 07/08/25 07:55 Consult to Physician [CONS] Urgent Comment: Consulting Provider: Fredrick Landeros Has provider been notified: Yes Attending Physician on discharge: MD Milla Escalante, [facility], [facility] Date of Discharge: 07/09/25 DS: Diagnosis Discharge Diagnosis (1) Cholecystitis with cholelithiasis: Status: Acute Problem details: - OR today, [place] aware. NPO. IV pain medication. - lipase also mildly elevated. IVF. Recheck in am after lap lali. If lipase remains elevated, may need to consider stopping Mounjaro indefinitely Underwent laparoscopic cholecystectomy on 07/08/2025. Postoperative directions and follow-up per General surgery on discharge. (2) Type 2 diabetes mellitus: Status: Chronic Problem details: 10/07/24: A1c 7.9 % 03/10/25: Cr 1.02 mg/dL - Hold mounjaro. ISS Recommend discussing resumption of mounjaro with PCP postoperatively. (3) VALERIE (obstructive sleep apnea): Status: Chronic Problem details: 10/12/2017 AHI 9.4 (4) Cyst of ovary: Status: Chronic Problem details: Gets large cyst on ovaries CT 07/08/2025 shows There is a 1.8 centimeter right ovarian versus paraovarian cyst. Cyst of this size are generally physiologic in a patient this age. Consider follow-up/better characterization with ultrasound after 2-3 cycles. DS: Summary Hospital Course Hospital Course: Course of care and details as noted above. Underwent laparoscopic cholecystectomy on 07/08/[address] Yaneth Landeros. Postoperative instructions per General surgery. Status at Discharge Functional status at discharge: independent ambulation Overall status at discharge: patient is progressing back to baseline Time Spent with Patient Time attestation: Total time spent providing and/or coordinating discharge services: Time spent: Greater than 30 minutes Exam Narrative: Exam Narrative: PHYSICAL EXAM General: Pleasant, conversant, NAD Cardiovascular: RRR Pulmonary: No dyspnea Abdomen: Appropriate postoperative tenderness, incision sites appear to be healing appropriately Neurological: Alert, answering questions appropriately Skin: Warm, dry. Const: Vital Signs, click to edit/add: Vital Signs - 24 hr 07/08/25 13:40 07/08/25 13:40 07/08/25 16:55 Temperature 97.9 F 99.2 F Pulse Rate 116 H Pulse Rate [Pulse Oximeter] Pulse Rate [Right Radial] 84 Respiratory Rate 18 17 Blood Pressure 97/56 L Blood Pressure [Ri ght Arm] 111/69 Pulse Oximetry 96 96 99 Oxygen Delivery Me thod Room Air Nasal Cannula Oxygen Flow Rate 2 07/08/25 17:00 07/08/25 17:05 07/08/25 17:10 Temperature Pulse Rate 117 H 116 H 111 H Pulse Rate [Pulse Oximeter] Pulse Rate [Right Radial] Respiratory Rate 20 16 17 Blood Pressure 97/56 L 99/54 L 96/54 L Blood Pressure [Ri ght Arm] Pulse Oximetry 97 96 93 Oxygen Delivery Me thod Room Air Oxygen Flow Rate 1 07/08/25 17:15 07/08/25 17:20 07/08/25 17:25 Temperature 100.3 F H Pulse Rate 113 H 110 H 101 H Pulse Rate [Pulse Oximeter] Pulse Rate [Right Radial] Respiratory Rate 16 14 13 Blood Pressure 99/50 L 89/54 L 93/57 L Blood Pressure [Ri ght Arm] Pulse Oximetry 93 93 94 Oxygen Delivery Me thod Oxygen Flow Rate 07/08/25 17:33 07/08/25 17:45 07/08/25 18:00 Temperature 97.8 F Pulse Rate 104 H 101 H 95 Pulse Rate [Pulse Oximeter] Pulse Rate [Right Radial] Respiratory Rate 18 16 Blood Pressure 91/61 92/64 97/64 Blood Pressure [Ri ght Arm] Pulse Oximetry 93 96 Oxygen Delivery Me thod Nasal Cannula Nasal Cannula Nasal Cannula Oxygen Flow Rate 2 1 2 07/08/25 18:15 07/08/25 18:30 07/08/25 19:00 Temperature 97.5 F L 97.2 F L 97.7 F Pulse Rate 97 92 105 H Pulse Rate [Pulse Oximeter] Pulse Rate [Right Radial] Respiratory Rate 16 16 16 Blood Pressure 92/65 95/67 95/65 Blood Pressure [Ri ght Arm] Pulse Oximetry 97 91 96 Oxygen Delivery Me thod Room Air Room Air Room Air Oxygen Flow Rate 07/08/25 19:30 07/08/25 21:00 07/08/25 22:00 Temperature 97.7 F 98 F 98 F Pulse Rate 98 Pulse Rate [Pulse Oximeter] 98 96 Pulse Rate [Right Radial] Respiratory Rate 16 18 16 Blood Pressure 96/63 Blood Pressure [Ri ght Arm] 105/70 107/69 Pulse Oximetry 93 96 94 Oxygen Delivery Me thod Room Air Room Air Room Air Oxygen Flow Rate 07/08/25 23:00 07/09/25 00:00 07/09/25 03:00 Temperature 98.1 F 98 F 98.1 F Pulse Rate Pulse Rate [Pulse Oximeter] 92 88 90 Pulse Rate [Right Radial] Respiratory Rate 16 14 16 Blood Pressure Blood Pressure [Ri ght Arm] 103/58 L 100/63 97/57 L Pulse Oximetry 96 94 95 Oxygen Delivery Me thod Room Air Room Air Room Air Oxygen Flow Rate 07/09/25 07:00 Temperature 98.2 F Pulse Rate Pulse Rate [Pulse Oximeter] 70 Pulse Rate [Right Radial] Respiratory Rate 20 Blood Pressure Blood Pressure [Ri ght Arm] 100/61 Pulse Oximetry 93 Oxygen Delivery Me thod Room Air Oxygen Flow Rate DS: Data Data Completed and Pending Labs on day of discharge: Labs from last 24 hours 07/09/25 07/08/25 05:43 14:25 WBC 20.17 H RBC 3.82 L Hgb 12.0 Hct 36.1 MCV 95 MCH 31 MCHC 33 RDW Coeff of Adam 12.8 Plt Count 234 Neut % (Auto) 87.6 H Lymph % (Auto) 8.2 L [place] % (Auto) 3.8 Eos % (Auto) 0.0 Baso % (Auto) 0.1 Neut # (Auto) 17.70 H Lymph # (Auto) 1.70 [place] # (Auto) 0.80 Eos # (Auto) 0.00 Baso # (Auto) 0.00 Abs Immat Gran (auto) 0.10 Imm/Tot Granulo (auto) 0.3 Sodium 137 Potassium 4.2 Chloride 106 Carbon Dioxide 25 Anion Gap 6 L BUN 12 Creatinine 0.8 Estimated Creat Clear 105.64 Estimated GFR 93 Glucose 113 Calcium 9.3 Total Bilirubin 1.0 AST 28 ALT 21 Alkaline Phosphatase 72 Total Protein 6.7 Albumin 3.9 Lipase 80 Preliminary micro results at discharge 07/08/25 05:09 Urine Culture - Preliminary Urine,Clean Catch <10,000 COL/ML GRAM POSITIVE MELANIE Imaging CT scan - abdomen: Attestation: I have reviewed the pertinent imaging results. Radiologist's impression: Lung bases: Normal. Liver: Normal. No mass. Gallbladder and bile ducts: The gallbladder is distended but there is not any pericholecystic edema or obvious gallbladder wall thickening. No bile duct dilation. Pancreas: Normal. Spleen: Normal. Adrenal glands: Normal. Kidneys: Normal overall renal size and position. There is a 1.2 centimeter right renal cyst. No calculi. Mildly patulous upper collecting systems. The degree of dilatation is better than before. The ureters are not dilated. Urinary bladder: Normal. Pelvis: There is a right ovarian or paraovarian cyst that measures 1.8 centimeters. Vessels: Normal. Bowel: No dilated or inflamed bowel. appendix. Mild stool burden. Lymph nodes: No adenopathy. Peritoneum: No ascites. Abdominal wall: No hernia. Bones: No fractures. No focal worrisome bone lesions. IMPRESSION: 1. Distended gallbladder without CT findings of acute cholecystitis. 2. There is a 1.8 centimeter right ovarian versus paraovarian cyst. Cyst of this size are generally physiologic in a patient this age. Consider follow-up/better characterization with ultrasound after 2-3 cycles. Gallbladder ultrasound: Attestation: I have reviewed the pertinent imaging results. Radiologist's impression: Gallbladder: Numerous gallstones including stones at the gallbladder neck. Borderline gallbladder wall thickness at 3 millimeters. Trace pericholecystic fluid questioned. Positive sonographic Doty`s sign. Common bile duct: 3 mm. Impression: Cholelithiasis with trace pericholecystic fluid questioned and positive sonographic Doty`s sign. This is considered suspicious for acute cholecystitis. Discharge Plan Discharge Disposition: Home w/ Parent or Adult Discharging Surgeon: Fredrick Landeros Follow-Up Appointment: 2 weeks NF Prescriptions: New hydrocodone-acetaminophen 5-325 mg tablet 1 tab PO Q6H PRN (Reason: pain) Qty: 20 0RF polyethylene glycol 3350 [Miralax] 17 gram powder in packet 17 g PO BID Qty: 30 0RF Continued venlafaxine 150 mg capsule,extended release 24hr 150 mg PO DAILY omeprazole 20 mg capsule,delayed release(DR/EC) 20 mg PO DAILY losartan 25 mg tablet 12.5 mg PO DAILY Auvelity 45-105 mg tablet, IR and ER, biphasic 1 tab PO BID atorvastatin 40 mg tablet 40 mg PO QPM Discontinued Mounjaro 12.5 mg/0.5 mL pen injector 12.5 mg subcut Q7D Activity Level: No strenuous activity Activity Detail: No strenuous activity or lifting more than 15-20 lbs for 4-6 weeks. Take laxative such as MiraLax daily for the first 7-10 days after surgery to prevent constipation. Take the outer dressing off tomorrow. Leave Steri-Strips on for the next 7-10 days. Okay to shower in 24 hours after surgery. Avoid swimming or submerging incision under water (except for showering) for 2 weeks. Discuss restarting Mounjaro with PCP prior to next scheduled dose. Discharge Diet: Regular Patient Instructions: Hydrocodone/Acetaminophen (By mouth), Polyethylene Glycol 3350 (By mouth), Sleep Apnea (DC), General Anesthesia (DC), Laparoscopic Cholecystectomy (DC) Forms: Work/School Release Follow-up: Fredrick Landeros MD [Staff Physician, General Surgery] - 07/29/25 1:30 pm Referral Note: Follow up in 2 weeks Discharge Orders: Discharge Order (Routine); Ordered 07/09/25 Ordered By: Milla Brewer
--- NOTE | 2025-07-09 11:36 | PC.NURSE ---
Pt a/o x4, pain reported 3-6/10 throughout shift. pain med given per mar, pt reported no nausea. Appetite fair. dressing changed per surgeon's order. Pt D/C education given both verbal and written. No questions or concerns at time of discharge. pt left facility via wheelchair accompanied by commercial lines underwriter and family member at 1140.
== END 2025-07-09 11:40 | disposition home or self-care (01) ==
LOC: ED 09:31 → OR 09:48 → MEDSURG 09:49
PROVIDERS: Family Medicine; Emergency Provider Family Medicine; Visit Provider Surgery
PROC: 0FT44ZZ Resection of Gallbladder, Percutaneous Endoscopic Approach (ICD-10-PCS; CPT 47562; principal; 2025-07-08 15:00)
DX: K80.00 Calculus of gallbladder with acute cholecystitis without obstruction (principal); K21.9 Gastro-esophageal reflux disease without esophagitis; E11.9 Type 2 diabetes mellitus without complications; Z79.85 Long-term (current) use of injectable non-insulin antidiabetic drugs; G47.33 Obstructive sleep apnea (adult) (pediatric); E66.01 Morbid (severe) obesity due to excess calories; K76.0 Fatty (change of) liver, not elsewhere classified; N83.291 Other ovarian cyst, right side; F32.9 Major depressive disorder, single episode, unspecified
CPT/HCPCS: 47562; 00790; 36415; 74177; 76705; 80053; 81001; 81025; 82962; 83605; 83690; 84484; 85025; 86140; 87086; 88304; 93005; 99284; 99285; A9270; J0330; J0665; J1100; J1171; J1630; J1885; J2250; J2371; J2405; J2543; J2704; J3010; J3490; J7120; Q9967

== ENCOUNTER 2025-07-15 19:31 | Emergency (ER) | payer BC, SELFPAY ==
--- OUTSIDE RECORDS SUMMARY | 2025-07-15 19:33 | XMS_ITS | Clinical Summary ---
Author Organization [facility] Address [address] [place] [address] Care Team Providers Care Front End Loader Driver Name Role Phone Papo, Wanda LISA Primary Care Provider [phone] Source Comments PLEASE NOTE, if this patient is a minor, it may be UNLAWFUL to discuss sensitive information that is contained in these records (such as FAMILY PLANNING, MENTAL HEALTH or SUBSTANCE ABUSE) with the minor patient's parent or other person without the patient's specific authorization.[facility] Allergies Active Allergy Reactions Criticality Noted Date Comments Quetiapine Fumarate 06/19/2022 Medications blood-glucose meter (BLOOD GLUCOSE MONITORING) monitoring kit monitor blood glucose 2 hours after meals and whenever symptomatic 4 Active lancets use lancets 3 times daily 4 Active dapagliflozin propanediol 5 mg tab Take 1 Tablet by mouth daily. 30 Tablet 5 5 Active alpha lipoic acid 600 mg capsule Take 1 Capsule by mouth once daily 30 Capsule 5 5 Active colchicine 0.6 mg tablet Take 1 Tablet by mouth 2 (two) times daily 60 Tablet 1 5 Active blood sugar diagnostic (ONETOUCH VERIO TEST STRIPS) strips USE DIRECTED TO TEST BLOOD SUGAR THREE TIMES DAILY 100 Each 3 5 Active dextromethorphan -bupropion (AUVELITY) 45-105 mg TbIE TAKE 1 TABLET BY MOUTH TWICE DAILY FOR MAJOR DEPRESSION 60 Tablet 2 5 Active venlafaxine XR (EFFEXOR XR) 150 mg 24 hr capsuleIndicatio ns:Major depressive disorder, recurrent, moderate,Post-tr aumatic stress disorder, chronic TAKE 1 CAPSULE BY MOUTH EVERY DAY 30 Capsule 2 Active Active Problems Problem Noted Date Diagnosed Date Acute gout of foot 10/28/2024 Neuropathy 10/07/2024 Type 2 diabetes mellitus, wi thout long-term current use of insulin 10/07/2024 Pain in both feet 10/07/2024 Otalgia of left ear Bereavement Type 2 diabetes mellitus Recurrent major depressive episodes, moderate Resolved Problems Problem Noted Date Diagnosed Date Resolved Date Acute urinary tract infection 03/26/2024 Immunizations Immunization Administration Dates Next Due Flu, Preservative Free 06/19/2023,2020,06/07/2020,07/23/2019, 07/04/2018,08/07/2017,06/14/2016 INFLUENZA, SEASONAL, INJECTABLE 07/17/2010,10/25 TDAP 05/19/2021,02/01/2012,03/31/2011 Social History Tobacco Use Types Packs/Day Years Used Date Smoking Tobacco: Never Smokeless Tobacco: Never Tobacco Cessation:Counseling Given: Not Answered Alcohol Use Standard Drinks/Week Comments Never 0 (1 standard drink = 0.6 oz pur e alcohol) Social Connections Answer Date Recorded Connectedness 0 05/27/2024 Financial Resource Strain Answer Date R ecorded Financial Resource Strain 0 2023 Stress Answer Date Recorded Stress 0 01/02/2024 Physical Activity Answer Date Recorded Physical Activity 0 01/02/2024 Food Insecurity Answer Date Recorded Food 0 06/05/2024 Transportation Needs Answer Date Record ed Transportation 0 01/02/2024 Housing Stability Answer Date Recorded Housing 0 01/02/2024 Safety and Environment Answer Date Mike rded Safety 0 01/02/2024 Utilities Answer Date Recorded Utilities 0 01/02/2024 Employment Answer Date Recorded Stress 0 05/27/2024 Comments No Sex and Gender Information Value Date Recorded Sex Assigned at Female 03/22/2024 11:01 PM PDT Legal Sex Female 7:32 PM PDT Gender Identity Female 02/29/2024 3:44 PM PDT Sexual Orientation Straight 02/29/2024 3: 44 PM PDT Last Filed Vital Signs Vital Sign Reading Time Taken Comments Blood Pressure 98/64 12/18/2024 11:10 AM CDT Pulse 105 12/18/2024 11:10 AM CDT Temperature 36.1 C (96.9 F) 10/07/2024 8:50 AM FENCE REPAIRMAN Respiratory Rate 18 12/18/2024 11:10 AM CDT Oxygen Saturation 96% 12/18/2024 11:10 AM CDT Inhaled Oxygen Concentration - - Weight 87.6 kg (193 lb 3.2 oz) 12/18/2024 11:10 AM CDT Height 152.4 cm (5') 10/07/2024 8:50 AM FENCE REPAIRMAN Body Mass Index 37.73 10/07/2024 8:50 AM FENCE REPAIRMAN Plan of Treatment Health Maintenance Due Date Last Done Comments Anxiety Screening 1981 Diabetes Foot Exam 1981 HPV Screening (self-collect) 1981 HPV Screening 1981 Retinopathy Screening 1994 Relationship Safety Screening/Counseling 1996 Imm-Hepatitis B (1 of 3 - 19 + 3-dose series) 2000 Imm-Pneumococcal (1 of 2 - PCV) 2000 Imm-HPV (1 - 3-dose SCDM series) 2008 Pap Smear 12/03/2021 12/03/2018 Cervical Cancer Screening 12/04/2023 Pap + HPV 12/04/2023 12/03/2018 Depression Monitoring 01/23/2024 10/25/2023 , 06/05/2023, 12/14/2022, Additional history exists Alcohol and Drug Screen 09/10/2024 Hemoglobin A1c 01/05/2025 10/07/2024, 01/08, 10/21/2023, Additional history exists Lipid Screening 01/23/2025 01/24/2024, 10/21/2023 Breast Cancer Screening (Mammogram) 02/14/2025 02/14/2023 [id number] ( season) 2025 09/19/2023, 02/03/2021, 01/06/2021 Imm-Influenza (#1) 2025 09/24/2023, 1 , 06/03/2021, Additional history exists Tobacco Screening 10/07/2025 10/07/2024 Urine Albumin Creatinine Rat io Screening 10/07/2025 10/07/2024 Hypertension Screening (#1) 12/18/2025 Serum Creatinine 03/10/2026 03/10/2025, , 10/07/2024, Additional history exists Imm-DTaP/Tdap/Td (4 - Td or Tdap) 05/19/2031 05/19/2021, 02/01/2012, 03/31/2011 HIV Screening Completed 02/11/2016 Hepatitis C Screening Completed 10/15/2020, 021 Cervical Ablation/Cold-Knife Conization Discontinued Cervical Cryotherapy Discontinued Colposcopy Discontinued Excision/Leep Discontinued HPV Genotyping Discontinued Vaginal Pap Discontinued Vulvoscopy Discontinued Procedures Procedure Name Priority Date/Time Associated Diagnosis Comments COMPREHENSIVE METABOLIC PANEL Routine 10/07/2024 9:47 AM FENCE REPAIRMAN Type 2 diabetes mellitus with other specified complication, without long-term current use of insulin ([facility]) Pain in both feet HEMOGLOBIN A1C (POCT) Routine 10/07/2024 9:47 AM FENCE REPAIRMAN Type 2 diabetes mellitus with other specified complication, without long-term current use of insulin ([facility]) MICROALBUMIN/CREATININ E RATIO, URINE, RANDOM Routine 10/07/2024 9:45 AM FENCE REPAIRMAN Type 2 diabetes mellitus with other specified complication, without long-term current use of insulin ([facility]) Pain in both feet LIPID PROFILE Routine 01/24/2024 8:34 AM CDT from Last 3 Months or Most Recently Relevant to Health Maintenance Results * (ABNORMAL) [id number]-Hhylol/POC (10/07/2024 9:47 AM FENCE REPAIRMAN) YzkO8r-Syueoh/POC 7.9(H) 4.8 - 5.6 % [facility] Comment: INTERPRETIVE COMMENT: Normal: Below 5.7% Prediabetes: 5.7 - 6.4% Diabetes: 6.5% or above The level of Hgb A1c reflects the average of a person's glucose levels over the past 3 months. The table shows the predicted relationship between A1C and estimated average glucose: A1C Average Glucose 4 % 60 mg/dL 5 % 90 mg/dL 6 % 126 mg/dL 7 % 154 mg/dL 8 % 183 mg/dL 9 % 212 mg/dL 10 % 240 mg/dL 11 % 269 mg/dL 12+% 298+ mg/dL REFERENCES: 1. Adapted from [place] [employer]. Standards of medical care in diabetes-2014. Diabetes Care.2014;37 (Supp 1):S14-S80, table 8. 2. The A1C Test and Diabetes, National [employer] of Diabetes and Digestive and Kidney Diseases, November 2013. Capillary Blood Blood / Unknown 9:47 AM FENCE REPAIRMAN 10/07/2024 9:51 AM FENCE REPAIRMAN us Wanda Barros [facility] - BLOOD DRAW Final Result [facility] [address] [place] [address], * (ABNORMAL) CMP (10/07/2024 9:47 AM FENCE REPAIRMAN) BUN/CREAT 20 9 - 23 [facility] Chloride 106 97 - 108 mmol/L [facility] Albumin/Globulin Ratio 1.4 1.1 - 2.5 [facility] Total Bilirubin 0.6 0.0 - 1.2 mg/dL [facility] Anion Gap 15 [facility] Estimated Glomerular Filtration Rate >59 >59 mL/min/1.7 3 [facility] ALBUMIN 4.4 3.5 - 5.5 g/dL [facility] ALKALINE PHOSPHATASE 106 25 - 150 U/L [facility] ALT 36 10 - 45 U/L [facility] AST 41(H) 0 - 40 U/L [facility] GLUCOSE 178(H) 65 - 95 mg/dL [facility] Calcium 10.4(H) 8.7 - 10.2 mg/dL [facility] CREATININE 0.9 0.6 - 1.0 mg/dL [facility] Enzymatic CO2 21 20 - 32 mmol/L [facility] Potassium 4.7 3.5 - 5.2 mmol/L [facility] NA+ 137 135 - 145 mmol/L [facility] Total Protein 7.5 6.0 - 8.5 g/dL [facility] BUN 18 6 - 24 mg/dL [facility] Blood Blood / Unknown 10/07/2024 9 :47 AM FENCE REPAIRMAN 10/07/2024 9:51 AM FENCE REPAIRMAN Wanda Barros [facility] - BLOOD DRAW Final Result Performing Organization Address [facility] Co de Phone Number [facility] [address] [place] [address], * (ABNORMAL) Microalbumin, Urine (10/07/2024 9:45 AM FENCE REPAIRMAN) Wpkeyqt-ml-Royx tinine Ratio 30 - 300 mg/g Abnormal(A ) <30 mg/g Normal mg/g [facility] Urine Albumin 80 mg/L 10 - 150 mg/L [facility] Urine Creatinine 200 mg/dL 10 - 300 mg/dL [facility] Urine Urine specimen / Unknown 10/07/2024 9:45 AM FENCE REPAIRMAN 10/07/2024 9:50 AM FENCE REPAIRMAN Wanda Barros [facility] URINE AMBULATORY Final Res ult Performing Organization Address City/[facility]/ZIP Co de Phone Number [facility] [address] [place] [address], [place] [phone] * (ABNORMAL) LIPID PROFILE (01/24/2024 8:34 AM CDT) VLDL 69(H) 6 - 40 01/24/2024 8:34 AM CDT DATA CONVERSION TRIGLYCRDES 347(H) <149 mg/dL 01/24/2024 8:34 AM CDT DATA CONVERSION LDLC 99(H) <99 01/24/2024 8:34 AM CDT DATA CONVERSION CHC/RATIO 6 01/24/2024 8:34 AM CDT DATA CONVERSION CHOLESTEROL 202(H) 100 - 199 mg/dL 01/24/2024 8:34 AM CDT DATA CONVERSION LDL DIRECT 34(L) 39 - 61 mg/dL 01/24/2024 8:34 AM CDT DATA CONVERSION 01/24/2024 8:34 AM CDT Jvc Provider Default [facility] Final Res ult DATA CONVERSION from Last 3 Months or Most Recently Relevant to Health Maintenance Insurance [employer] Member Subscriber Plan / Payer (Ef fective 2024-Present) Name:Amarilys Molina Relation to Subscriber:Self Name:Amarilys Molina Payer ID:[id number] Group ID:Not on file Type:Indemnity Address: [address] [id number] Care Teams Front End Loader Driver Relationship Specialty Start Date End Date Wanda Barros FNP [address] [place] [phone] PCP - General SMOKE INSPECTOR Nurse Practitioner 10/07/24
--- OUTSIDE RECORDS SUMMARY | 2025-07-15 19:34 | XMS_ITS | Clinical Summary ---
Author Organization [facility] Address [address] [place] [address] Care Team Providers Care Butcher Supervisor Name Role Phone Jenni Stein MD Unavailable Gen Huang MD Unavailable [phone] Hillary Holley RN Unavailable [phone] Unavailable [phone] Pricila Farfan PhD, LP Unavailable [phone] Nina Sevilla MD Primary Care Provider Allergies [...] *Unknown 06/07/2021 No blood products, pt is Oriental orthodox Quetiapine Other - Describe In Comment Field,Hallucinations [...] mellitus with diabetic microalbuminuri a, unspecified whether laborer marine terminal insulin use (HC) Inject 12.5 mg subcutaneous once weekly. 6 mL 3 06/01/20 25 Active atorvastatin (LIPITOR) 40 mg tabletIndicatio ns:Type 2 diabetes mellitus with diabetic microalbuminuri a, unspecified whether laborer marine terminal insulin use (HC) Take 1 Tablet (40 mg) by mouth at bedtime. 90 Tablet 3 06/01/20 25 Active losartan (COZAAR) 25 mg tabletIndicatio ns:Type 2 diabetes mellitus with diabetic microalbuminuri a, unspecified whether care home insulin use (HC) Take 0.5 Tablets (12.5 [...] mellitus with diabetic microalbuminuri a, unspecified whether laborer marine terminal insulin use (HC) As directed. 11/14/19 25 Active blood-glucose meterIndication s:Type 2 diabetes mellitus with diabetic microalbuminuri a, unspecified whether laborer marine terminal insulin use (HC) monitor blood glucose 2 hours after meals and whenever symptomatic 10/25/19 24 Active blood-glucose meterIndication s:Type 2 diabetes mellitus with diabetic microalbuminuri a, unspecified whether care home insulin use (HC) once daily. 10/25/19 24 Active lancetsIndicati ons:Type 2 diabetes mellitus with diabetic microalbuminuri a, unspecified whether care home insulin use (HC) As directed. 10/29/19 24 [...] . Planned Operation Sleeve Gastrectomy +Cholecystectomy Payor: [place] / Plan: [employer] [facility] [place] / Product Type: *No Product type* / Insurance requirements:Pre-surgery medical clearance-see letter 02/16/21 from RADHA Castañeda Est. Pgm Completion: ~ April, Procedure Location: [facility] Co-morbidities: VALERIE Orders: Labs Yes Imaging / [...] ANBW 04/18/2021 11:00 AM Pricila Farfan, PhD, [facility] ANW IP OP Problem Noted Date Diagnosed [...] Encounters Date Type Department Care Team Description 07/09/2025 Lab Requisition [facility] [phone] Fredrick Landeros MD 06/26/2025 9:30 AM CDT Telemedicine [facility] [address] [place] [address] Joan Moore MD Mental Health Intake 06/23/2025 Telephone [facility] [address] [place] [address] Nina Sevilla MD Prior Authorization (Auvelity 45-105 mg tablet APPROVED 06/23/25-06/23/26) 06/21/2025 Travel 06/17/2025 Telephone [facility] [address] [place] [address] Nina Sevilla MD Prior Authorization (tirzepatide (MOUNJARO) 12.5 mg/0.5 mL pen APPROVED 06/17/25-06/17/26) 06/01/2025 4:25 PM CDT Office Visit [facility] [address] [place] [address] Nina Sevilla MD Establish Care; Physical (45 [...] on file Legal Sex Female 6:18 AM TELEVISION PARTS TESTER Gender Identity Not on file Sexual Orientation [...] st Contact Info) Description 09/01/2025 3:50 PM TELEVISION PARTS TESTER Office Visit [facility] [address] [place] [address] Nina Sevilla MD [address] [place] [address] Health Maintenance Due Date Last Done Comments [...] Completed 10/15/2020 Medical Devices Implanted Type Area Foundry Metallurgist Device Identifier Shelf Expiration Date Model / Serial / Lot Stent Contour [id number] - [id number] Implanted:Qty: 1 on 08/16/2011 at [facility] Right: Ureter [facility] [id number] / / [id number] Description:NO STICKER WK Stent Uret [id number] Silhouette - [id number] Implanted:Qty: 1 on 09/13/2017 by Des Ye MD at [facility] Left: Ureter [employer] 11/27/2019 [id number]# / / [id number] Stent Uret [id number] Silhouette - [id number] Implanted:Qty: 1 on 11/29/2017 by Des Ye MD at [facility] Right: Ureter [employer] 05/14/2020 [id number]# / / [id number] Stent Uret [id number] Contour - [id number] Implanted:Qty: 1 on 12/16/2020 by Parker Henry MD at [facility] Left: Ureter [facility] 07/20/2023 [id number] / / [id number] Stent Uret [id number] Contour - [id number] Implanted:Qty: 1 on 06/07/2021 by Des Ye MD at [facility] Left: Ureter [facility] 02/10/2024 [id number] / / [id number] Procedures Procedure Name Priority Date/Time Associated Diagnosis Comments LAB TRACKING EVENT Routine 07/09/2025 12 :00 PM CDT PATH TISSUE EXAM Routine 07/08/2025 4:10 PM CDT COMP METABOLIC PANEL Routine 06/01/2025 5:15 PM CDT Type 2 diabetes mellitus with diabetic microalbuminuria, unspecified whether laborer marine terminal insulin use (HC) NAFLD (nonalcoholic fatty liver disease) HEMOGLOBIN A1C Routine 06/01/2025 5:15 PM CDT Type 2 diabetes mellitus with diabetic microalbuminuria, unspecified whether laborer marine terminal insulin use (HC) LIPID PANEL W REFLEX MEASURED LDL Routine 06/01/2025 5:15 PM CDT Mixed hyperlipidemia ANTI HCV Routine 10/15/2020 10:59 AM TELEVISION PARTS TESTER Rheumatoid factor positive Arthralgia, unspecified joint ADMISSIONS COUNSELOR THIN PREP PAP SCREEN IMAGED Routine 12/03/2018 2:30 PM CDT Screening for malignant neoplasm of cervix ANTI HIV 1/2 Routine 02/11/2016 10:06 AM CDT Elevated rheumatoid factor from Last 3 Months or Most Recently Relevant to Health Maintenance Results * LAB TRACKING EVENT (07/09/2025 12:00 PM CDT) Other (Other) Client Collect / Unknown 07/09/2025 12:00 PM CDT 07/09/2025 2:13 PM CDT us Fredrick Landeros MD LAB BILL ONLY Final Resu lt [facility] LABORATORY [address] [place] [address], * PATH TISSUE EXAM (07/08/2025 4:10 PM CDT) Case Report Pathology Report Case: [id number] Authorizing Provider: Fredrick Landeros MD Collected: 07/08/2025 1610 Ordering Location: [facility] Received: 07/09/20252038 Pathologist: Lauren Jauregui MD Specimen: Gallbladder 07/14/2025 10:01 AM [facility] LABORATORY-C ENTRAL LABORATORY Final Diagnosis A) GALLBLADDER, CHOLECYSTECTOMY: 1. Chronic cholecystitis 2. Cholelithiasis 3. Negative for dysplasia and malignancy 07/14/2025 10:01 AM [facility] LABORATORY-C ENTRAL LABORATORY at 1001 TELEVISION PARTS TESTER Clinical Information Ms. Molina is a 45 year-old with cholelithiasis 07/14/2025 10:01 AM TELEVISION PARTS TESTER [facility]AL LABORATORY Gross Description A) Received in formalin, labeled with the patient's name and gallbladder, is a 9.5 x 4.5 x 4.0 cm intact gallbladder. There are multiple yellow gallstones identified. There are no mucosal lesions identified. The average wall thickness is 0.2 cm. There is no abnormal wall thickening identified. No cystic duct lymph node is identified. Inside Sales Account Representative sections are submitted in one cassette. VRS 07/10/2025 07/14/2025 10:01 AM [facility] LABORATORY-C ENTRAL LABORATORY Microscopic Description The final diagnosis is based on microscopic examination of appropriate sections of all specimens. 07/14/2025 10:01 AM [facility] LABORATORY-C ENTRAL LABORATORY Additional Information Interpreted at [facility], Central Laboratory - [address] [facility] [address], [place] [address] 07/14/2025 10:01 AM [facility]- ENTRNE LABORATORY Other SPECIMEN FROM GALLBLADDER / Unknown 07/08/2025 4:10 PM CDT 07/09/2025 8:39 PM CDT us Fredrick Landeros MD PATHOLOGY/CYTOLOGY Final R esult [facility] [address] [place] [address], [place] * HEMOGLOBIN A1C (06/01/2025 5:15 PM CDT) HEMOGLOBIN A1C 5.4 <5.7 % 06/02/2025 4:02 AM CDT [facility] Comment: For the purpose of screening for the presence of diabetes: <5.7% Consistent with the absence of diabetes 5.7-6.4% Consistent with increased risk for diabetes (prediabetes) > or =6.5% Consistent with diabetes This assay result is consistent with a decreased risk of diabetes. Currently, no consensus exists regarding use of hemoglobin A1c for diagnosis of diabetes in children. According to [place] Diabetes Association (ADA) guidelines, hemoglobin A1c <7.0% represents optimal control in non- diabetic patients. Different metrics may apply to specific patient populations. Standards of Medical Care in Diabetes(ADA). Blood BLOOD SPECIMEN / Unknown [facility] Collect / Unknown 06/01/2025 5:15 PM CDT 06/01/2025 5:15 PM CDT us Nina Sevilla MD CHEMISTRY Final R esult [facility] [id number] [place] [address], * (ABNORMAL) LIPID PANEL W REFLEX MEASURED LDL (06/01/2025 5:15 PM CDT) CHOLESTEROL, TOTAL 225(H) <200 mg/dL 06/02/2025 8:27 AM CDT [facility] TRIGLYCERIDES 167(H) <150 mg/dL 06/02/2025 8:27 AM CDT [facility] HDL CHOLESTEROL 40(L) > OR = 50 mg/dL 06/02/2025 8:27 AM CDT [facility] NON HDL CHOLESTEROL 185(H) <130 mg/dL (calc) 06/02/2025 8:27 AM CDT [facility] Comment: For patients with diabetes plus 1 major ASCVD risk factor, treating to a non-HDL-C goal of <100 mg/dL (LDL-C of <70 mg/dL) is considered a therapeutic option. CHOL/HDLC RATIO 5.6(H) <5.0 (calc) 06/02/2025 8:27 AM CDT [facility] LDL-CHOLESTEROL 155(H) mg/dL (calc) 06/02/2025 8:27 AM CDT [facility] Comment: Reference range: <100 Desirable range <100 mg/dL for primary prevention; <70 mg/dL for patients with CHD or diabetic patients with > or = 2 CHD risk factors. LDL-C is now calculated using the Chad-Cong calculation, which is a validated novel method providing better accuracy than the Friedewald equation in the estimation of LDL-C. Chad SS et al. MARYLU. 2013;310(19): 7656-6157 (http://education.Space Monkey.[employer]/faq/ETI455) Blood BLOOD SPECIMEN / Unknown [facility] / Unknown 06/01/2025 5:15 PM CDT 06/01/2025 5:15 PM CDT us Nina Sevilla MD CHEMISTRY Final R esult [facility] [employer] [address] [place] [address], * (ABNORMAL) COMP METABOLIC PANEL (06/01/2025 5:15 PM CDT) SODIUM 140 135 - 146 mmol/L 06/02/2025 8:27 AM CDT [facility] POTASSIUM 4.2 3.5 - 5.3 mmol/L 06/02/2025 8:27 AM CDT [facility] CHLORIDE 107 98 - 110 mmol/L 06/02/2025 8:27 AM CDT [facility] CARBON DIOXIDE 22 20 - 32 mmol/L 06/02/2025 8:27 AM CDT [facility] GLUCOSE 75 65 - 99 mg/dL 06/02/2025 8:27 AM CDT [facility] Comment: Fasting reference interval CALCIUM 9.7 8.6 - 10.2 mg/dL 06/02/2025 8:27 AM CDT [facility] CREATININE 1.18(H) 0.50 - 0.99 mg/dL 06/02/2025 8:27 AM CDT [facility] BUN/CREATININE RATIO 11 6 - 22 [...] MD CHEMISTRY Final R esult [facility] [address] [address], * ANTI HCV (10/15/2020 10:59 AM TELEVISION PARTS TESTER) HEPATITIS C ANTIBODY Non-React kristy Non-React kristy 10/15/2020 8:05 PM TELEVISION PARTS TESTER [facility] LABORATORY-[facility] TRAL LABORATORY Comment:Antibodies to HCV no t detected; does not exclude the possibility of exposure to HCV. Blood BLOOD SPECIMEN / Unknown [facility] / Unknown 10/15/2020 10:59 AM TELEVISION PARTS TESTER 10/15/2020 10:59 AM TELEVISION PARTS TESTER Bryanna Higgins MD SEND OUTS Final Result [facility] LABORATORY-CENTRAL LABORATORY [address] [place] [address], [place] * ADMISSIONS COUNSELOR THIN PREP PAP SCREEN IMAGED (12/03/2018 2:30 PM CDT) Case Report Gynecologic Cytology Report Case: [id number] Authorizing Provider: Pam Mendez PA Collected: 12/03/2018 1430 Ordering Location: [facility] Received: 12/03/2018 1501 Clinic First Screen: Eder Coronel Specimen: ADMISSIONS COUNSELOR ThinPrep Vial Screening, Cervical 12/11/2018 11:24 AM CDT [facility] LABORATORY-C ENTRAL LABORATORY INTERPRETATION/ RESULT NEGATIVE FOR INTRAEPITHELIAL LESION OR MALIGNANCY (NIL) (none) 12/11/2018 11:24 AM CDT [facility] LABORATORY-C ENTRAL LABORATORY at 1124 CDT SPECIMEN ADEQUACY Satisfactory for evaluation Endocervical component present 12/11/2018 11:24 AM CDT [facility] LABOR[facility] HPV REQUEST HPV and PAP 12/11/2018 11:24 AM CDT [facility] LABORAT[facility] Date of LMP 11/21/18 12/11/2018 11:24 AM CDT [facility] EN[facility] Last Pap Date 05/11/15 12/11/2018 11:24 AM CDT [facility] Last Pap Result NIL 11:24 AM CDT [facility] Abnormal Pap or Columbia Bx in last 5 years No 12/11/2018 11:24 AM CDT [facility] Menstrual Status Regular Periods 12/11/2018 11:24 AM CDT [facility] Columbia Bx Done Today No 12/11/2018 11:24 AM T [facility] Additional Information None given 12/11/2018 11:24 AM T [facility] Automated Review Successful 12/11/2018 11:24 AM T [facility] Comment:Specimen processed s uccessfully by automated patent paralegal device, ThinPrep Imaging System, [employer] ANCILLARY TESTING ADMISSIONS COUNSELOR HPV Ordered, Please see separate report 12/11/2018 11:24 AM T [facility] Note The pap test is a [...] lesions. Cytology is screened and interpreted at [facility], Central Laboratory - [address], [place] [address] and [facility] - [address] [place] [address]; [place] [address] and [facility] - [address]; [place] [address] and [facility] [address]; [place] [address] 12/11/2018 11:24 AM [facility] LABOR[facility] Other (Cervical) Non-Blood / Unknown 12/03/2018 2:30 PM CDT 12/03/2018 3:01 PM CDT us Pam GARCIA PATHOLOGY/CYTOLOGY Final R esult [facility] LABOR[facility]ORY [address] [place] [address], [place] * ANTI HIV 1/2 (02/11/2016 10:06 AM CDT) HIV-1/HIV-2 ANTIBODY Non-Reacti ve Non-Reacti ve 02/11/2016 4:32 PM CDT [facility] TRAL LABORATORY Blood specimen (specimen) BLOOD SPECIMEN / Unknown Venipuncture / Unknown 02/11/2016 10:06 AM CDT 02/11/2016 10:07 AM CDT Narrative [facility] - 02/11/2016 4:32 PM CDT HIV-1 p24 and HIV-1/HIV-2 Ab not detected us Sung Viclhis MD SEND OUTS Final Resul t Performing Organization Address City/[facility]/ZIP Co de Phone Number [facility] [address] [place] [address], from Last 3 Months or Most Recently Relevant to Health Maintenance Insurance MEDICAID MEDICA CHOICE MEDICAID [facility] WORK[employer] Member Subscriber Plan / Payer (Ef fective 2016-Present) Name:Amarilys Molina Relation to Subscriber:Self Name:Amarilys Molina Payer ID:Not on file Group ID:Not on file Type:Not on file [phone] Address: [place] [address] [employer] Member Subscriber Plan / Payer (Ef fective 2016-Present) Name:Amarilys Molina Relation to Subscriber:Self Name:Amarilys Molina Payer ID:Not on file Group ID:Not on file Type:Not on file [phone] Address: [address] [place] [address] Advance Directives * Full Code (Latest Code [...] 12:38 PM 03/22/2012 3:56 PM Care Teams Butcher Supervisor Relationship Specialty Start Date End Date Nina Sevilla MD [address] [place] [address] PCP - General Family Practice 06/01/25 Jenni Stein MD [address] [place] [address] Psychiatry Psychiatry 01/17/18 Gen Huang MD [address] [address] Consulting Physician Surgery - General 02/04/21 Hillary Holley RN [address] [address] Registered Nurse 02/09/[address] [address] Registered Dietitian Pain Management Nurse Practitioner 02/09/21 Pricila Farfan, PhD, LP [address] [place] [id number] Psychology 04/18/21
--- OUTSIDE RECORDS SUMMARY | 2025-07-15 19:34 | XMS_ITS | Data Portability ---
Author Organization [facility], [facility] Address [address] [place] [address] Care Team Providers Care Snack Bar Cook Name Role Phone [facility] Primary Care Provider Assessment No assessment recorded. Plan of Treatment Reminders Order Date Submit Date Provider Last Modified By Organization Details Last Modified Time Details Appointments None recorded. Lab PTH (parathyr oid hormone), intact + calcium, serum or plasma [id number] 30 [facility], [address] [facility], [place], [address], 09:48:46 kidney stone, 24-hour urine panel 021 [email or web address] [facility], [address], [place], [address], 16:17:18 Referral None recorded. Procedures None recorded. [...] foreign body/stent removal completed Des Ye MD [address] [place] [address],[address], [place], [address], [facility] 06/15/2021 14:00:34 Cystoscopy with foreign body/stent removal completed Des Ye MD [address] [place] [address],[address], [place], [address], [facility] 12/30/2020 22:58:34 Breast reduction completed Des Ye MD [address] [place] [address],[address], [place], [address], [facility] 12/29/2020 15:27:08 Carpal tunnel surgery completed Des Ye MD [address] [place] [address],[address], [place], [address], [facility] 12/29/2020 15:27:14 delivery completed Des Ye MD [address] [place] [address],[address] [place] [address], [phone], [facility] 12/29/2020 15:27:22 Imaging Results None recorded. Procedure Notes None recorded. Medical Equipment None Reported. Allergies Allergen ID Allergen Name Allergen Category Reaction Reaction Severity Criticality Documentation Date Start Date Code Code System Note Provider Name and Address Organization Details Recorded Time 160228 quetiapin e medicatio n other Not available Not available 12/29/20202015 04795 RxNorm Des Ye MD [address] [place] [address],[address] [place] [address], [phone], [facility] 1 15:24:50 728529 hydroxyzi ne Not available Not available Not available Not available 12/29/20202015 5553 RxNorm Other react ions and sever ities : 'Thro at Swell ing/C ginain g - Sever e'. Des Ye MD [address] [place] [address],[address] [place] [address], [phone], [facility] 1 15:24:50 [id number] lamotrigi ne medicatio n sultana-j ohnson syndrome severe Not available 12/29/20202017 24072 RxNorm Des Ye MD [address] [place] [address], [phone], [facility] 1 15:24:50 186404 loratadin e medicatio n edema severe Not available 12/29/20202011 41375 RxNorm Other react ions and sever ities : 'Thro at Swell ing/C losin g - Sever e'. Des Ye MD [address] [place] [address],[address], [phone], [facility] 1 15:24:50 471622 topiramat e medicatio n other Not available Not available 12/29/20202017 45349 RxNorm Des Ye MD [address] [place] [address], [facility] 1 15:24:50 [id number] quetiapin e fumarate medicatio n edema hives severe severe Not available 12/29/20202011 47539 3 RxNorm Des Ye MD [address] [place], [place] [phone], [facility] 1 15:24:50 Medications Name Sig [...] Updated DateTime 12/29/2020 149.86 cm 46.5 kg/m2 146558.25 g Des Ye MD [address] [facility],[address], [address] [place] [address] Urology 12/29/2020 15:24:33 Date Recorded Body height Body mass index (BMI) Body weight Provider Name and Address Organization Details Last Updated DateTime 06/15/2021 149.86 cm 44.4 kg/m2 74127.32 g Des Ye MD [address] [facility],[address], [place], [address] 06/15/2021 11:27:44 Social History Question Answer Notes LastModified by Jaco Solarsi Details LastModified Time Tobacco Smoking Status Former Smoker Des Ye MD [address] [facility],[address], [place], [address] 12/29/2020 15:26:47 When Did You Quit Smoking? 17+yearssinc elastcigaret te Information not available 12/29/2020 What Was The Date Of Your Most Recent Tobacco Screening? 06/15/2021 Information not available 06/15/2021 Sex: Unknown Functional Status Question Answer Note LastModified by Jaco Solarsi Details LastModified Time Do you or have [...] ICD10 Code Diagnosis IMO Codes Diagnosis Note [id number] Des Ye MD [facility] [address] [place] [address] 12/29/2020 14:51:10 12/31/2020 09:43:44 Kidney stone 17390797 N20.0 1. Kidney stones - s/p Left ureterosco py with laser lithotrips y (12/16/20) - encourage fluid intake (2.5 L per day) and Citrate intake - recheck 24 Hr urine study - Follow-up in 4-6 weeks to discuss the results [id number] MD GERRI [facility] [address] [place] [address] 06/15/2021 11:10:48 06/17/2021 10:19:43 Kidney stone 47317766 N20.0 1. Kidney stones - s/p Left ureterosco py with laser lithotrips y (06/08/21) - reviewed 24 Hr urine study (01/17/21) - low urine output (1.69 L) - recommend drinking at least 2.5 L per day - high Calcium (229 mg) - check PTH and serum- high Sodium (262 mg) - recommend low Sodium diet (5545-4439 mg per day)- high Uric acid - [...] (MEDICAID REPLACEMENT - HMO) [id number] Amarilys Molina [id number] Amarilys Molina Notes Date Note Type [...] - Uric acid (0.613) Des Ye MD [address] [place] [address],[address], [place], [address] 12/30/2020 23:00:44 06/15/2021 text/html 41 yo [...] mg) - Phos (1.1230) Des Ye MD [address] [facility],[address], [place], [address], [facility] 06/15/2021 14:02:11 OBGyn Episode No OBEpisode recorded.
[2025-07-15 19:48] VITALS: BP 100/72; PULSE 104; RESP 16; TEMP 36.5; O2SAT 99; BMI 33.9
[2025-07-15 20:14] LABS: Lactate Sepsis w/Reflex* 0.8 mmol/L (0.5-1.9)
[2025-07-15 20:15] LABS: Hematocrit* 41.6 % (33.0-51.0); Hemoglobin* 13.6 gm/dL (12.0-16.0); Immature Granulocytes Abs Auto 0.05 K/uL (0.00-0.30); Immature Granulocytes Pct Auto 0.5 %; Lymphocytes Absolute Auto 3.53 K/uL (0.90-2.90); Mean Corpuscular HGB Conc 33 gm/dL (32-36); Mean Corpuscular Hemoglobin 31 pg (26-34); Mean Corpuscular Volume 95 fL (80-100); RDW Coefficient of Variation % 13.0 % (11.5-15.5); Red Blood Count* 4.36 m/uL (4.00-5.20); White Blood Count* 10.73 K/uL (4.50-11.00)
[2025-07-15 20:16] LABS: Creatinine, Point-of-Care* 1.2 mg/dl (0.6-1.3)
--- NOTE | 2025-07-15 20:16 | ED.GENADULT ---
HPI - General Adult General Chief complaint: Dizziness/Vertigo Stated complaint: dizzy, fast heart rate Time Seen by Provider: 07/15/25 19:50 Source: patient Mode of arrival: ambulatory Limitations: no limitations History of Present Illness HPI narrative: 45-year-old male presents to the emergency department with lightheadedness, especially with standing and position changes. No vertigo type symptoms, no focal neurological changes. Symptoms are worse with activity. No chest pain or shortness of breath. She is status post cholecystectomy 6 days ago, uncomplicated. Did have some mild pancreatitis at that time, thought secondary to the gallstones that were also noted on investigation. She discharged after surgery without complication and had been doing well the 1st few days. She has continued to use her injectable G LP 1 inhibitor and did restart her losartan postoperatively. 2 days ago, she started noticing a little bit of lightheadedness and really has increased the last 24 hours. She has no fever. Surgical sites do not appear to have any complications. There has been no nausea or vomiting. She has been eating and drinking but she admits not a whole lot due to her injectable medication, has not had have much of an appetite. She notes decreased urination the past 2 days. No bloody stools. No gynecological changes, no dysuria. She is not having much abdominal pain, reports taking about 2 of the [place] per day, weaning off of this well. No prior history of similar symptoms. Did not try any other interventions prior to coming to ED. Did take her blood pressure at home and noted it was around 100 systolic. Past medical history notable for type 2 diabetes, obesity. As stated she has lost about 50 lb on her GLP 1 medication. She also takes min mental health medications which are unchanged. Nonsmoker. ROS is notable for the generalized symptoms as above only, otherwise denies times 12 systems. Related Data Home Medications ?Medication ?Instructions ?Recorded ?Confirmed omeprazole 20 mg capsule,delayed 20 mg PO DAILY 06/01/22 07/08/25 release venlafaxine 150 mg 150 mg PO DAILY 06/01/22 07/08/25 capsule,extended release 24 hr atorvastatin 40 mg tablet 40 mg PO QPM 07/08/25 07/08/25 dextromethorphan IR 45 1 tab PO BID 07/08/25 07/08/25 mg-bupropion ER 105 mg biphasic tablet (Auvelity) losartan 25 mg tablet 12.5 mg PO DAILY 07/08/25 07/08/25 Previous Rx's ?Medication ?Instructions ?Recorded hydrocodone 5 mg-acetaminophen 325 1 tab PO Q6H PRN pain #20 tabs 07/09/25 mg tablet polyethylene glycol 3350 17 gram 17 g PO BID #30 ea 07/09/25 oral powder packet (Miralax) Allergies Allergy/AdvReac Type Severity Reaction Status Date / Time hydroxyzine Allergy Verified 07/15/25 21:16 lamotrigine Allergy Verified 07/15/25 21:16 loratadine Allergy Verified 07/15/25 21:16 quetiapine Allergy Verified 07/15/25 21:16 [facility] Medical History Nexplanon in place ?Z97.5 - Presence of (intrauterine) contraceptive device (ICD-10) Neuropathy ?G62.9 - Polyneuropathy, unspecified (ICD-10) Renal calculi ?N20.0 - Calculus of kidney (ICD-10) Generalized anxiety disorder ?F41.1 - Generalized anxiety disorder (ICD-10) Mixed hyperlipidemia ?E78.2 - Mixed hyperlipidemia (ICD-10) Cyst of ovary ?N83.209 - Unspecified ovarian cyst, unspecified side (ICD-10) Type 2 diabetes mellitus ?E11.9 - Type 2 diabetes mellitus without complications (ICD-10) Severe episode of recurrent major depressive disorder, without psychotic features ?F33.2 - Major depressive disorder, recurrent severe without psychotic features (ICD-10) NAFLD (nonalcoholic fatty liver disease) ?K76.0 - Fatty (change of) liver, not elsewhere classified (ICD-10) Chronic insomnia ?F51.04 - Psychophysiologic insomnia (ICD-10) PTSD (post-traumatic stress disorder) ?F43.10 - Post-traumatic stress disorder, unspecified (ICD-10) VALERIE (obstructive sleep apnea) ?G47.33 - Obstructive sleep apnea (adult) (pediatric) (ICD-10) Renal cyst ?N28.1 - Cyst of kidney, acquired (ICD-10) Amphetamine use disorder, mild, in early remission ?F15.11 - Other stimulant abuse, in remission (ICD-10) Borderline intellectual disability ?R41.83 - Borderline intellectual functioning (ICD-10) Fibromyalgia ?M79.7 - Fibromyalgia (ICD-10) Abnormal glandular Papanicolaou smear of cervix ?R87.619 - Unspecified abnormal cytological findings in specimens from cervix uteri (ICD-10) Surgical History H/O lithotripsy ?Z98.890 - Other specified postprocedural states (ICD-10) H/O section ?Z98.891 - History of uterine scar from previous surgery (ICD-10) Status post breast reduction ?Z98.890 - Other specified postprocedural states (ICD-10) Hx of colonoscopy ?Z98.890 - Other specified postprocedural states (ICD-10) History of bilateral carpal tunnel release ?Z98.890 - Other specified postprocedural states (ICD-10) H/O esophagogastroduodenoscopy ?Z98.890 - Other specified postprocedural states (ICD-10) Family History Other Coronary artery disease Depression High blood pressure High cholesterol Lung cancer Thyroid disease Social History Narrative: 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 Has moved back and forth between [facility] and [place] the last few years. Nonsmoker. Denies alcohol use. Denies recreational drug use. Smoking Status: Never smoker Non-prescribed substance use: denies use Exam Const: Vital Signs, click to edit/add: Vital Signs - 24 hr 07/15/25 19:48 Temperature 97.7 F Pulse Rate [Pulse Oximeter] 104 H Respiratory Rate 16 Blood Pressure [Ri ght Upper Arm] 100/72 Pulse Oximetry 99 Oxygen Delivery Me thod Room Air Documenting provider has reviewed patient's vital signs: yes Common normals: no apparent distress and alert General appearance: cooperative, comfortable and well kempt HENMT: Common normals: normocephalic, moist oral mucous membranes and oropharynx normal Head and scalp: normocephalic Face and sinus: normal facial exam Mouth: oral and palatal mucosa normal Eye: Common normals: conjunctivae normal General eye: normal appearance of both eyes Conjunctiva: conjunctiva(e) normal Neck & C-Spine: Common normals: full ROM and no lymphadenopathy General: normal visual inspection Resp: Common normals: normal respiratory effort and no use of accessory muscles Effort & inspection: able to speak in complete sentences Cardio: Common normals: regular rate, regular rhythm, S1 normal heart sound, S2 normal heart sound and no murmurs Rate: regular rate Rhythm: regular rhythm Heart sounds: S1 normal and S2 normal GI: Other: The surgical incisions look really good. There is not appear to be any drainage. There is minimal surrounding bruising which of course would be expected. No redness, no significant swelling. Bowel sounds are normoactive throughout. She is only minimally diffusely tender, certainly no rebound tenderness, guarding or mass. Extremity: Common normals: normal to inspection and normal capillary refill Neuro: Common normals: moves all extremities Sensorium/orientation: alert Speech: speech normal Motor exam: strength 5/5 throughout Psych: Common normals: speech normal Appearance: well kempt Attitude: engaged Activity/motor behavior: appropriate eye contact Speech: normal speech Attention/concentration: attention grossly intact Memory/cognition: memory grossly intact Insight: insight good Judgement: judgment good Skin: Common normals: no rashes or lesions noted General skin exam: no rashes or lesions noted Course Course ED Course: 45-year-old female 7 days post cholecystectomy presenting with dizziness suggestive of hypovolemia with tachycardia, hypotension. Differential diagnosis including acute blood loss anemia, sepsis, surgical complication, infection, dehydration or side effects from her antihypertensive. She is on this for renal protection only, does not have a history of hypertension but she has lost about 50 lb since she was started on the medication, she may not be tolerating this any longer but this is a pretty profound change in blood pressure. She is actually 86 systolic when I interview her based on her most recent blood pressure. Will start with aggressive IV fluids. Peripheral IV, start with 1 L of normal saline. Labs to look for intra-abdominal infection, complications, CBC. CT of the abdomen and pelvis, point of care creatinine. Await findings. Reevaluation(s) Time of Reevaluation #1: 21:55 Reevaluation #1: Reviewed CT and lab findings with patient. She was feeling much better after the L of fluid. The CT did not reveal any worrisome findings either. I think that this really is multifactorial. This is a combination of her recent significant weight loss, not eating as much after surgery, taking the losartan after 50 lb weight loss. At this time, she will hold the losartan and follow up with her primary care doctor in a week or 2 to determine if it needs to be restarted, likely does not. She will continue her G LP 1 medication. She was counseled to drink lots of fluids and eat salty foods for the next couple of days while the losartan gets out of her system. Wean off of the hydrocodone and switch to just Tylenol and ibuprofen. Alarm symptoms like fevers, bloody stools, other worrisome findings were reviewed as indications to come back to the ED, she verbalizes understanding and agreement. Written instructions provided as well. Vital Signs Vital signs: Initial Vital Signs Temperature 97.7 F 07/15/25 19:48 Temperature Source Temporal Artery Scan 07/15/25 19:48 Pulse Rate 104 H 07/15/25 19:48 Respiratory Rate 16 07/15/25 19:48 Blood Pressure 100/72 07/15/25 19:48 Blood Pressure Mean 81 07/15/25 19:48 Blood Pressure Position Sitting 07/15/25 19:48 Pulse Oximetry 99 07/15/25 19:48 Oxygen Delivery Method Room Air 07/15/25 19:48 Vital Signs Temperature 97.7 F 07/15/25 19:48 Pulse Rate 104 H 07/15/25 19:48 Respiratory Rate 16 07/15/25 19:48 Blood Pressure 100/72 07/15/25 19:48 Pulse Oximetry 99 07/15/25 19:48 Oxygen Delivery Method Room Air 07/15/25 19:48 Temperature 97.7 F 07/15/25 19:48 Pulse Rate 104 H 07/15/25 19:48 Respiratory Rate 16 07/15/25 19:48 Blood Pressure 100/72 07/15/25 19:48 Pulse Oximetry 99 07/15/25 19:48 Oxygen Delivery Method Room Air 07/15/25 19:48 Medications Administered Medications: Generic Name Dose Route Start Last Admin Trade Name Freq PRN Reason Stop Dose Admin Lactated Ringer's 1,000 mls @ 1,000 mls/hr 07/15/25 21:22 07/15/25 21:37 Lactated Ringers 1000 Ml IV 07/15/25 22:21 1,000 mls/hr .Q1H ONE Administration Discontinued Medications Generic Name Dose Route Start Last Admin Trade Name Zeinab PRN Reason Stop Dose Admin Sodium Chloride 1,000 mls @ 1,000 mls/hr 07/15/25 19:57 07/15/25 20:51 0.9 % Sodium Chloride 1000 Ml IV 07/15/25 20:56 Infused .Q1H ARAM Infusion Medical Decision Making Lab Data Lab results reviewed: Yes I reviewed the patient's lab results Lab results narrative: Labs are very reassuring. No signs of any acute kidney injury, major electrolyte abnormality, infection, sepsis etc.. Labs: Lab Results 07/15/25 07/15/25 07/15/25 Range/Units 20:09 20:10 21:05 WBC 10.73 (4.50-11.00) K/uL RBC 4.36 (4.00-5.20) m/uL Hgb 13.6 (12.0-16.0) gm/dL Hct 41.6 (33.0-51.0) % MCV 95 (80-100) fL MCH 31 (26-34) pg MCHC 33 (32-36) gm/dL RDW Coeff of Adam 13.0 (11.5-15.5) % Plt Count 281 (140-440) K/uL Neut % (Auto) 58.5 (42.0-72.0) % Lymph % (Auto) 32.9 (20-44) % Towns % (Auto) 6.3 (0.0-11.0) % Eos % (Auto) 1.4 (0.0-7.0) % Baso % (Auto) 0.4 (0.0-3.0) % Neut # (Auto) 6.28 (1.7-7.0) K/uL Lymph # (Auto) 3.53 H (0.90-2.90) K/uL Towns # (Auto) 0.70 (0.00-0.90) K/UL Eos # (Auto) 0.15 (0.00-0.50) K/uL Baso # (Auto) 0.04 (0.00-0.30) K/uL Abs Immat Gran (auto) 0.05 (0.00-0.30) K/uL Imm/Tot Granulo (auto) 0.5 % Sodium 138 (135-149) mmol/L Potassium 4.5 (3.6-5.1) mmol/L Chloride 106 (96-114) mmol/L Carbon Dioxide 24 (20-32) mmol/L Anion Gap 8 (7-15) mEq/L BUN 15 (5-24) mg/dL Creatinine 1.1 (0.5-1.5) mg/dL Estimated Creat Clear 78.51 Estimated GFR 64 ml/min Glucose 104 (60-115) mg/dL Lactate 0.8 (0.5-1.9) mmol/L Calcium 9.6 (8.4-10.6) mg/dL Total Bilirubin 1.4 (0.1-1.5) mg/dL AST 23 (12-35) U/L ALT 28 (4-35) U/L Alkaline Phosphatase 66 (40-150) U/L C-Reactive Protein < 0.5 L (0.5-1.0) mg/dL Total Protein 7.4 (6.0-8.3) g/dL Albumin 4.3 (3.3-5.0) g/dL Lipase 101 (23-300) U/L HCG, Qual Negative (Negative) Urine Color Yellow (Yellow) Urine Appearance Clear (Clear) Urine pH 5.5 (5.0-8.5) Ur Specific [place] 1.025 (1.000-1.030) Urine Protein Negative (Negative) Urine Glucose (UA) Negative (Negative) Urine Ketones 1+ A (Negative) Urine Blood Negative (Negative) Urine Nitrite Negative (Negative) Urine Bilirubin Negative (Negative) Urine Urobilinogen 1.0 (0.2-1.0) Ur Leukocyte Esterase Negative (Negative) POC Creatinine 1.2 (0.6-1.3) mg/dl Imaging Data CT scan - abdomen: Attestation: I have reviewed the pertinent imaging results. My impression: A little constipation but no other pertinent findings Radiologist's impression: IMPRESSION: 1. No CT correlate for the patient`s symptoms seen. Dictated by Héctor Marshall MD @ 07/15/2025 9:32:20 PM Please note that all CT scans at this facility use dose modulation, iterative reconstruction, and/or weight-based dosing when appropriate to reduce radiation dose to as low as reasonably achievable. Dictated by: Héctor Marshall MD @ 07/15/2025 21:32:26 Discharge Plan Discharge Clinical Impression: Medication side effects, Acute hypotension Patient Disposition: Home w/ Parent or Adult Condition: Improved Instructions: Adverse Drug Reaction (ED) Additional Instructions: As we discussed, I think this low blood pressure is a function of many things coming together. I would like for you to go ahead and wean off of the hydrocodone and just switched to Tylenol or ibuprofen to control your pain. I want you to stop taking the losartan. I think that you have ?outgrown? this medication with your 50 lb weight loss. Make a follow-up appointment with her primary care provider in about a week to discuss if you should restart the medication or change therapies if you still need kidney protection. I do want you to keep taking your injectable diabetes medication in the meantime. It will take a couple of days to get the rest of the losartan out of your system. So I need to to eat salty foods and drink lots of fluids tomorrow, but you should be doing a lot better by Sunday. There were no signs of bleeding, infection or other complication from the surgery. If you have any return of severe symptoms, you should return to the emergency room. Activity Level: No strenuous activity Discharge Diet: Regular Prescriptions: No Action venlafaxine 150 mg capsule,extended release 24hr 150 mg PO DAILY omeprazole 20 mg capsule,delayed release(DR/EC) 20 mg PO DAILY losartan 25 mg tablet 12.5 mg PO DAILY Auvelity 45-105 mg tablet, IR and ER, biphasic 1 tab PO BID atorvastatin 40 mg tablet 40 mg PO QPM hydrocodone-acetaminophen 5-325 mg tablet 1 tab PO Q6H PRN (Reason: pain) Qty: 20 0RF polyethylene glycol 3350 [Miralax] 17 gram powder in packet 17 g PO BID Qty: 30 0RF Follow Up/Referrals: Provider,Not a Local [Primary Care Provider, Family Practice] Stand Alone Forms: [employer] Info Instructions
[2025-07-15 20:21] LABS: Slide Review Reflex No
[2025-07-15 20:33] LABS: Albumin* 4.3 g/dL (3.3-5.0); Chloride* 106 mmol/L (96-114); Potassium* 4.5 mmol/L (3.6-5.1); Sodium* 138 mmol/L (135-149)
--- NOTE | 2025-07-15 20:33 | CRLHL7_ITS ---
For Patients: As a result of the Cures Act, medical imaging exams and procedure reports are released immediately into your electronic medical record. You may view this report before your referring provider. If you have questions, please contact your health care provider. INDICATION: Hypotension following cholecystectomy TECHNIQUE: CT Abdomen and pelvis with i.v. contrast. Coronal and sagittal reformats were obtained. CONTRAST: 82 mL Isovue 370 COMPARISON: 07/08/2025 FINDINGS: Lower chest: Unremarkable. Liver: Unremarkable. Spleen: Unremarkable. Pancreas: Unremarkable. Gallbladder: Interval cholecystectomy noted with no significant intra- or extrahepatic biliary ductal dilatation seen. No fluid collections are seen within the operative bed. Kidney: There is a cyst in the anterior mid zone of the right kidney measuring 1.3 cm. Mild bilateral renal pelviectasis is noted without change. Adrenal: Unremarkable. Bowel: The stomach, small bowel, and colon are unremarkable. The appendix cannot be identified but there are no inflammatory changes noted in the right lower quadrant. Vascular: Unremarkable. Lymph: Unremarkable. Peritoneum: Unremarkable. No pneumoperitoneum is seen. No significant ascites is noted. Pelvis: The patient is status post prior hysterectomy. Soft tissue: Unremarkable. Bone: Unremarkable for age. IMPRESSION: 1. No CT correlate for the patient`s symptoms seen. Dictated by Héctor Marshall MD @ 07/15/2025 9:32:20 PM Please note that all CT scans at this facility use dose modulation, iterative reconstruction, and/or weight-based dosing when appropriate to reduce radiation dose to as low as reasonably achievable. Dictated by: Héctor Marshall MD @ 07/15/2025 21:32:26 (Electronically Signed)
[2025-07-15 20:35] LABS: Blood Urea Nitrogen* 15 mg/dL (5-24); Creatinine* 1.1 mg/dL (0.5-1.5); Est. Creatinine Clearance* 78.51; Estimated Glomerular Filt Rate 64 ml/min
[2025-07-15 20:36] LABS: Alanine Aminotransferase* 28 U/L (4-35); Alkaline Phosphatase* 66 U/L (40-150); Anion Gap 8 mEq/L (7-15); Aspartate Amino Transferase* 23 U/L (12-35); Bilirubin Total* 1.4 mg/dL (0.1-1.5); Calcium* 9.6 mg/dL (8.4-10.6); Carbon Dioxide* 24 mmol/L (20-32); Glucose* 104 mg/dL (60-115); Total Protein* 7.4 g/dL (6.0-8.3)
[2025-07-15 20:54] LABS: HCG Qualitative Serum* Negative (Negative)
--- OUTSIDE RECORDS SUMMARY | 2025-07-15 20:55 | XMS_ITS | Clinical Summary ---
Author Organization [facility] Address [address] , [address] [place] [address] Phone Care Team Providers Care Shop Router Name Role Phone [facility] Unavailable [...] severe without psychotic features Imported from [facility]: [facility] ( 2 at 06:31:35 AM) PTSD (post-traum atic stress disorder) F43.10 (ICD-10-CM ) 10/21 Active 03/10 Desmond Doan MD Post-traumatic stress disorder, unspecified Imported from [facility]: [facility] ( 2 at 06:31:35 AM) Obstructive sleep apnea 55171979 (SNOMED CT) 10/19 Active 03/10 Desmond Doan MD Obstructive sleep apnea syndrome Imported from [facility]: [facility] ( 2 at 06:31:35 AM) Morbid obesity with BMI of 45.0-49.9, adult E66.01 (ICD-10-CM ) 02/04 Active 03/10 Desmond Doan MD Morbid (severe) obesity due to excess calories Imported from [facility]: [facility] ( 2 at 06:31:35 AM) Fibromyalgi a 56932329 (SNOMED CT) 12/20 Active 03/10 Desmond Doan MD Fibromyositis Imported from [facility]: [facility] ( 2 at 06:31:35 AM) Chronic insomnia 258633343 (SNOMED CT) 04/25 Active 03/10 Desmond Doan MD Insomnia Imported from [facility]: [facility] ( 2 at 06:31:35 AM) Borderline intellectua l disability R41.83 (ICD-10-CM ) 10/11 Active 03/10 Desmond Doan MD Borderline intellectual functioning Imported from [facility]: [facility] ( 2 at 06:31:35 AM) Bilateral kidney stones N20.0 (ICD-10-CM ) 03/14 Active 03/10 Desmond Doan MD Calculus of kidney Imported from [facility]: [facility] ( 2 at 06:31:35 AM) Carpal tunnel syndrome, bilateral G56.03 (ICD-10-CM ) 03/03 Active 03/03 Desmond Doan MD Carpal tunnel syndrome, bilateral upper limbs Non-epilept ic events R56.9 (ICD-10-CM ) 03/20 Active 03/20 Desmond Doan MD Unspecified convulsions Paresthesia 35517086 (SNOMED CT) 10/26 Resolved 10/26 Desmond Doan MD Paresthesia Paresthesia 59125158 (SNOMED CT) 10/26 Removed 10/26 John Davila MD Paresthesia Numbness/ti ngling 782.0 (ICD-9-CM) 03/03 Resolved 03/03 Florin Paris MD Disturbance of skin sensation Convulsions 05241898 (SNOMED CT) 03/20 Inactive 03/20 Florin Paris MD Seizure Numbness/ti ngling 782.0 (ICD-9-CM) 03/03 Removed 03/03 John Davila MD Disturbance of skin sensation Carpal tunnel syndrome 09767906 (SNOMED CT) 03/03 Inactive 03/03 John Davila MD Carpal tunnel syndrome Medications Medication Instructions Start Date Stop Date Generic Name NDC Provider LEVETIRACETAM 500 MG TABS Take 1 tablet by mouth twice a day levetiracetam 77963001610 Desmond Doan MD PRISTIQ 100 MG [id number] Take 1 tablet by mouth once a day desvenlafaxine succinate 89977562222 Desmond Doan MD LYRICA 50 MG CAPS Take 1 capsule by mouth twice a day pregabalin 75590844161 Desmond Doan MD TOPIRAMATE 25 MG TABS Take 1 tablet by mouth twice a day topiramate 14861728434 Desmond Doan MD LORAZEPAM 1 MG TABS Take 1 tablet by mouth every six hours as needed lorazepam 51228279896 Desmond Doan MD GABAPENTIN 300 MG CAPS Take 1 capsule by mouth twice a day gabapentin 24883682785 Desmond Doan MD BUSPIRONE HCL 30 MG TABS Take 1 tablet by mouth twice a day buspirone 70352348340 Desmond Doan MD DIAZEPAM 5 MG/5ML SOLN Take 2 ml by mouth every eight hours as needed diazepam 05743121990 Desmond Doan MD BUPROPION HCL ER (XL) 300 MG [id number] Take 1 Tablet (300 mg) by mouth once daily bupropion hcl 58639986866 Desmond Doan MD PREGABALIN 200 MG CAPS Take 1 Capsule (200 mg) by mouth 2 times daily pregabalin 82576745053 Desmond Doan MD VENLAFAXINE HCL ER 150 MG [id number] Take 2 Capsules (300 mg) by mouth once daily with a meal venlafaxine 74104863901 Desmond Doan MD GABAPENTIN 300 MG CAPS Take 3 Capsules (900 mg) by mouth at bedtime gabapentin 88574182985 Desmond Doan MD PRAZOSIN HCL 2 MG CAPS Take 3 Capsules (6 mg) by mouth at bedtime prazosin 15892252092 Desmond Doan MD OMEPRAZOLE 20 MG CPDR TAKE ONE CAPSULE BY MOUTH ONE TIME DAILY BEFORE A MEAL. omeprazole 77677557631 Desmond Doan MD BUSPIRONE HCL 30 MG TABS Take 1 Tablet (30 mg) by mouth 2 times daily. buspirone 18020716501 Desmond Doan MD GABAPENTIN 300 MG CAPS TAKE ONE CAP BY MOUTH TWICE DAILY GABAPENTIN 32857268178 Florin Paris MD PRISTIQ 100 MG [id number] TAKE ONE TABLET BY MOUTH ONE TIME DAILY DESVENLAFAXINE SUCCINATE 59056550182 Florin Paris MD LYRICA 50 MG CAPS TAKE ONE CAPSULE BY MOUTH TWICE A DAY PREGABALIN 96868237195 Florin Paris MD BUSPIRONE HCL 30 MG TABS TAKE ONE TAB BY MOUTH TWICE DAILY. BUSPIRONE HCL [id number] Florin Paris MD LEVETIRACETAM 500 MG TABS TAKE ONE TAB BY MOUTH TWICE DAILY LEVETIRACETAM 15820262062 Florin Paris MD TOPIRAMATE 25 MG TABS TAKE ONE TABLET BY MOUTH TWICE A DAY TOPIRAMATE 75871115973 Florin Paris MD LORAZEPAM 1 MG TABS TAKE ONE TAB BY MOUTH EVERY 6 HOURS IF NEEDED FOR ANXIETY LORAZEPAM 54260954568 Florin Paris MD DIAZEPAM 5 MG/5ML SOLN TAKE 2MLS BY MOUTH EVERY 8 HOURS IF NEEDED FOR SEIZURES DIAZEPAM [id number] Florin Paris MD Medications Administered No information available. Allergies, Adverse Reactions, Alerts Allergy Name Reaction Description Start Date Severity Statu s Provider TOPIRAMATE Other - Describe In Comment Field Mild Active Desmondsusannah Reynolds QUETIAPINE FUMARATE Edema Severe Active Desmondsusannah Doan MD LAMOTRIGINE Andrew-Juan Syndrome Severe Active Desmond Reynaldo Franki Reynolds PRAZOSIN HCL Moderate Active Florin Paris MD EFFEXOR Severe Active Gardendaledebbie Paris MD SEROQUEL Moderate Active Florindebbie Paris [...] Procedures Code Procedure Name Date Entry Date [facility]-[id number] Documentation of current medicatio ns CPT-45915 Nerve Conduction 5-6 studies CPT-44950 EMG with NCS (5+ muscles) - 2 limbs 10/26 ORDERS Follow up ORDERS Levetiracetam (Keppra) 03/20 ORDERS Patient Notification ORDERS Other Handout [facility]-[id number] Documentation of current medicatio ns ORDERS Patient Instructions CPT-14834 EEG EXTENDED (> 1 HOUR) (END) CPT-15956 Nerve Conduction 9-10 studies CPT-01785 EMG with NCS (5+ muscles) - 1 limb 03/03 CPT-87417 EMG with NCS (4 or fewer muscles) [...]
[2025-07-15 21:11] LABS: Appearance Urine Clear (Clear)
[2025-07-15] MEDS: LACTATED RINGERS 1000 ML 1,000 ML IV (21:37)
[2025-07-15 22:00] VITALS: BP 102/70; PULSE 74; RESP 18; TEMP 36.2; O2SAT 99
== END 2025-07-15 22:41 | disposition home or self-care (01) ==
PROVIDERS: Emergency Provider Family Medicine
DX: I95.9 Hypotension, unspecified (principal); T46.5X5A Adverse effect of other antihypertensive drugs, initial encounter
CPT/HCPCS: 36415; 74177; 80053; 81003; 82565; 83605; 83690; 84703; 85025; 86140; 96360; 99284; 99285; J7030; J7120; Q9967